=== PATIENT | female | born 1960 | race Caucasian/White ===

== ENCOUNTER 2021-04-04 08:52 | Outpatient (REF) | payer BC, SELFPAY ==
--- NOTE | ~2021-04-04 | MM_ITS ---
EXAMINATION: MM SCREENING DIGITAL BREAST TOMOSYNTHESIS, BILATERAL CLINICAL INFORMATION: Screening. Asymptomatic. The lifetime risk of breast cancer based on the Tyrer-Cuzick Model is 5.8%. COMPARISON: Mammography: March 28, 2020 and studies dating back to June 05, 2016 TECHNIQUE: Digital breast tomosynthesis is performed in both the craniocaudal and mediolateral oblique views along with computer-aided detection (CAD). Synthesized 2D images are generated from the tomosynthesis. FINDINGS: The breasts are heterogeneously dense, which may obscure small masses (ACR BI-RADS breast composition Category c). There are no significant masses, abnormal calcifications, or other abnormalities. MM/MM tomosynthesis screening BI IMPRESSION: There are no significant changes from prior study. ASSESSMENT: BI-RADS 1: Negative RECOMMENDATION: Routine annual mammography screening. This patient's information was entered into a reminder system with a target due date for their next mammogram.
== END 2021-04-04 08:53 | disposition home or self-care (01) ==
LOC: HO.MAMMO 08:52
PROVIDERS: PCP Internal Medicine; Visit Provider Internal Medicine
DX: Z12.31 Encounter for screening mammogram for malignant neoplasm of breast (principal)
CPT/HCPCS: 77063; 77067

== ENCOUNTER 2021-04-26 09:27 | Outpatient (REF) | payer BC, SELFPAY ==
[2021-04-29 13:41] LABS: HPV mRNA E6/E7 rflx Not Detected (Not Detected)
== END 2021-04-26 09:28 | disposition home or self-care (01) ==
LOC: HO.LAB 09:27
PROVIDERS: PCP Internal Medicine; Visit Provider Advanced Practice Midwife
DX: Z01.419 Encounter for gynecological examination (general) (routine) without abnormal findings (principal); Z11.51 Encounter for screening for human papillomavirus (HPV); N95.1 Menopausal and female climacteric states
CPT/HCPCS: 87624; 88142

== ENCOUNTER 2021-10-12 07:21 | Observation (INO) | payer BC, SELFPAY ==
[2021-10-12] VITALS (8 sets, daily range): BP systolic 151–198; BP diastolic 74–87; PULSE 63–78; RESP 13–18; TEMP 36.9–37.4; O2SAT 97–99; BMI 26.4
--- NOTE | ~2021-10-12 | MR_ITS ---
EXAMINATION: MR BRAIN WITHOUT CONTRAST CLINICAL INFORMATION: Left leg weakness. Severe dizziness. COMPARISON: Head CTA 10/12/2021. TECHNIQUE: Multiplanar, multisequence imaging of the brain was performed without intravenous contrast. FINDINGS: There is no acute infarction, mass, hemorrhage, or extra-axial collection. The ventricles, sulci, and basilar cisterns are normal in size and configuration. A few minimal nonspecific foci of T2/FLAIR hyperintensity are seen within the cerebral white matter. The flow voids of the major intracranial arteries appear intact. The bones and extracranial soft tissues are unremarkable. MR/MR head/brain wo con IMPRESSION: No acute infarct, mass lesion, intracranial hemorrhage, or evidence of hydrocephalus.
--- NOTE | ~2021-10-12 | CT_ITS ---
EXAMINATION: CT ANGIOGRAM NECK WITH CONTRAST CT ANGIOGRAM BRAIN WITH CONTRAST CLINICAL INFORMATION: Left leg weakness. COMPARISON: None. TECHNIQUE: Test bolus sequences followed by intravenous administration 100 mL of Omnipaque 350. Helical imaging was performed in the axial plane from the thoracic inlet to the skull vertex. Delayed postcontrast imaging of the head was also performed. The data was processed at the public health technologist workstation for generation of MIP sequences. Angled MIPs and volume rendered reformatted images were also generated at an offline 3D workstation. Stenoses are assessed in accordance with NASCET criteria unless otherwise indicated. This CT examination was performed using dose optimization techniques as appropriate, variously including the following: *Automated exposure control *Adjustment of mA and/or kV according to patient size (this includes techniques or standardized protocols for targeted exams where dose is matched to indication/reason for exam; i.e. extremities or head) *Use of iterative reconstruction technique DLP: 2158 mGy-cm FINDINGS: Head CT: There is no intracranial hemorrhage, large acute infarction, or mass lesion. The ventricles are normal in size and configuration without evidence of hydrocephalus. No abnormal enhancement is seen. The dural venous sinuses are normally opacified. The visualized paranasal sinuses and mastoid air cells are clear. Neck CTA: The aortic arch and great vessel origins are patent. A small ductus bump is noted (variant anatomy). The common and internal carotid arteries are patent. No bifurcation stenosis is seen. The bilateral vertebral arteries are codominant and patent. Head CTA: No proximal vessel occlusion is seen. The anterior and posterior circulations are patent. There is no stenosis or aneurysm. Non-vascular findings: There is no consolidation within the upper lungs. Multilevel degenerative changes are seen within the spine. CT/CT angio head neck IMPRESSION: No significant stenosis or occlusion within the major head or neck arteries. No acute intracranial abnormality.
--- NOTE | 2021-10-12 08:00 | ECG_ITS ---
Test Reason : Left-sided weakness Blood Pressure : / mmHG Vent. Rate : 068 BPM Atrial Rate : 068 BPM P-R Int : 124 ms QRS Dur : 078 ms QT Int : 412 ms P-R-T Axes : 006 060 038 degrees QTc Int : 438 ms Normal sinus rhythm Nonspecific ST abnormality Abnormal ECG No previous ECGs available Referred By: Generic ED Physician Electronically Signed By:JESSICA MCCLURE
--- NOTE | 2021-10-12 08:03 | ED.WEAKNESS ---
HPI - Weakness General Chief complaint: Weakness Stated complaint: L side tingling Time Seen by Provider: 10/12/21 07:39 Source: patient Mode of arrival: ambulatory Limitations: no limitations History of Present Illness HPI Narrative: 61 y/o otherwise healthy female presents to the ER from home for evaluation of dizziness for the last 24 hours and new onset of left leg weakness that she noticed when she woke up at 4am today. Yesterday morning patient reports she woke up and had severe positional dizziness to the point where she couldn't walk and needed to crawl to the bathroom. She was nauseated at the time but did not vomit. She reports it was like the room was spinning. It slowly improved by bedtime. Before she went to bed she noticed her left eye felt funny with some pressure and with foreign body sensation. No vision changes. When she woke up at 4am to go to the bathroom she states her left leg was noticeably weaker than the right and when she walked it felt like her left foot was walking on sponges. She had recurrent dizziness as well. No left arm weakness, speech difficulties. No history of stroke, no medical comorbidities and she is a nonsmoker. Her mother has had several strokes. MD Complaint: focal weakness Onset (ago): day(s) (1) Duration: constant Location: LLE Severity: moderate Quality: tingling Relieving factors: rest Exacerbating factors: movement Associated symptoms: nausea/vomiting Related Data Home Medications Medication Instructions Recorded Confirmed ascorbic acid (vitamin C) 500 mg 500 mg PO DAILY 10/12/21 10/12/21 tablet cholecalciferol (vitamin D3) 125 125 mcg PO DAILY 10/12/21 10/12/21 mcg (5,000 unit) tablet Allergies Allergy/AdvReac Type Severity Reaction Status Date / Time shellfish Allergy Unknown Unverified 05/15/16 00:00 shellfish derived Allergy Unknown ANGIOEDEMA Unverified 03/31/20 15:31 [SHELLFISH DERIVED] Sulfa (Sulfonamide Allergy Unknown Verified 05/15/16 00:00 Antibiotics) Review of Systems Review of Systems: Constitutional: No Fever, No Chills ENT/Mouth: No sore throat, No Rhinorrhea, No Swallowing Difficulty Eyes: No Eye Pain, No Swelling, No Redness, +FB sensation Cardiovascular: No Chest Pain, No SOB, No Orthopnea, No Edema Respiratory: No Cough, No Sputum, No Wheezing, No dyspnea Gastrointestinal: + Nausea, No Vomiting, No Diarrhea, No abdominal Pain, No Hematochezia, No Melena Genitourinary: No Dysuria, No Urinary Frequency, No Hematuria Musculoskeletal: No joint pain, No Myalgias Skin: No Skin Lesions, No rash Neuro: + Weakness, No Numbness, + Dizziness, No Headache Psych: No Anxiety/Panic, No Depression Heme/Lymph: No Bruising, No Lymphadenopathy Endocrine: No Polyuria, No Polydipsia [facility] Past Medical History Medical History Ganglion cyst Family History Family History Maternal Aunt History of breast cancer Social History Social History Alcohol intake: current Alcohol intake frequency: 0-2 drinks per day Alcohol type: beer Patient Tobacco Use Status: Never used Tobacco Advance Directives: No Sexual orientation: Straight/Heterosexual Gender identity: Female Physical Exam Vital Signs: Vital Signs: Last Vital Signs Temp 98.5 F 10/12/21 07:48 Pulse 66 10/12/21 09:43 Resp 14 10/12/21 09:43 BP 166/84 H 10/12/21 09:43 Pulse Ox 98 10/12/21 09:43 BMI result Body Mass Index 26.4 Appearance: Alert. Oriented X3. No acute distress. Eyes: Pupils equal, round and reactive to light. Slight ptosis of the left eye. EOMI, no nystagmus ENT: Pharynx normal. Normal TM's bilaterally, partially obscured by cerumen in the right Neck: Normal inspection. Neck supple. CVS: Normal heart rate and rhythm. Pulses normal. Respiratory: No respiratory distress. Breath sounds normal. Abdomen: Soft and nontender. +BS x4 Skin: Skin warm and dry. Normal skin color. Normal skin turgor. No rashes. Extremities: No lower extremity edema. Normal inspection x4 Neuro: Oriented X 3. Normal speech & cognition. Equal and symmetrical strength of the bilateral UE. No pronator drift. Normal finger to nose, able to perform heel to robles bilaterally but slower with the left leg. Left leg 3/5 strength, right leg 5/5. Decreased sensation of the left leg and foot. Gait not tested due to dizziness. NIH Stroke Scale Internal: Initial- Upon Arrival Level of Consciousness: Alert Level of Consciousness Questions: Answers both questions correctly Level of Consciousness Commands: Performs both tasks correctly Best Gaze: Normal Visual: No visual loss Facial Palsy: Minor paralyis (left eye ptosis) Motor Arm (Right): No drift Motor Arm (Left): No drift Motor Leg (Right): No drift Motor Leg (Left): Some effort against gravity Limb Ataxia: Absent Sensory: Mild to moderate sensory loss Best Language: No aphasia Dysarthia: Normal Extinction and Inattention: No abnormality Score: 4 Course Course Course Narrative: 61-year-old female with no medical comorbidities presenting to the ER with severe dizziness times 24 hours as well as 4 hours of left lower extremity weakness and tingling. Concern for stroke. Unfortunately she is out of the tPA window. Case d/w Dr. Esquivel who is in agreement. Stroke workup initiated including CT head, CTA head and neck, lab workup, EKG. Will monitor on telemetry. Will monitor closely. Allowing permissive HTN with concern for CVA. Anticipate admission. Reevaluation(s) Reevaluation #1: CTA head/neck negative for LVO or acute intracranial abnormality. Lab workup unremarkable. EKG sinus rhythm. Dizziness persists but better when resting with eyes closed. MRI brain ordered for further evaluation. Will admit for further monitoring and workup. Patient and updated on plan of care. MDM - Weakness Medical Records Attestation: I reviewed the patient's medical records. Lab Data Attestation: I reviewed the patient's lab results. Result diagrams: 10/12/21 08:03 10/12/21 08:03 Labs: Lab Results 10/12/21 10/12/21 10/12/21 Range/Units 08:03 08:03 08:03 WBC 3.8 L (4.8-10.8) X10*3/uL RBC 3.89 L (4.20-5.50) X10*6/uL Hgb 12.1 (12.0-16.0) g/dl Hct 36.5 L (37.0-47.0) % MCV 93.8 (80.0-98.0) fL MCH 31.1 (27.0-33.0) pg MCHC 33.2 (31.0-35.0) g/dl RDW 13.0 (11.0-16.0) % Plt Count 256 (160-400) X10*3/uL MPV 10.6 (9.4-12.3) fL Immature Gran % (Auto) 0.0 (0.0-0.4) % Neut % (Auto) 57.0 (45-73) % Lymph % (Auto) 30.9 (20-40) % [place] % (Auto) 9.5 (2-11) % Eos % (Auto) 1.8 (0-4) % Baso % (Auto) 0.8 (0-2) % Lymph # (Auto) 1.2 (1.2-4.9) X10*3/uL [place] # (Auto) 0.4 (0.1-1.2) X10*3/uL Eos # (Auto) 0.1 (0.0-0.4) X10*3/uL Baso # (Auto) 0.0 (0.0-0.2) X10*3/uL Abs Immat Gran (auto) 0.00 (0.00-0.03) X10*3/uL Absolute Neuts (auto) 2.2 (2.0-8.3) x10*3/uL Absolute Nucleated RBC 0.000 (0.0-0.012) X10*3/uL Nucleated RBC % (auto) 0.0 (0.0-0.2) /100WBC PT (9.9-13.0) SEC INR (0.9-1.1) Sodium 143 (135-145) mmol/L Potassium 4.1 (3.3-5.1) mmol/L Chloride 107 (96-108) mmol/L Carbon Dioxide 29 (22-29) mmol/L Anion Gap 11 L (12-20) BUN 11 (9-16) mg/dL Creatinine 0.80 (0.5-1.4) mg/dL Estim Creat Clear Calc 70.8 Estimated GFR > 60 Random Glucose 107 (60-115) mg/dL Calcium 9.0 (8.4-10.2) mg/dL Troponin I High Sens (<3.5-17.0) ng/L COVID-19 (CHRISTEN) Negative (Negative) COVID-19 Clin Com See Note 10/12/21 10/12/21 Range/Units 08:03 08:06 WBC (4.8-10.8) X10*3/uL RBC (4.20-5.50) X10*6/uL Hgb (12.0-16.0) g/dl Hct (37.0-47.0) % MCV (80.0-98.0) fL MCH (27.0-33.0) pg MCHC (31.0-35.0) g/dl RDW (11.0-16.0) % Plt Count (160-400) X10*3/uL MPV (9.4-12.3) fL Immature Gran % (Auto) (0.0-0.4) % Neut % (Auto) (45-73) % Lymph % (Auto) (20-40) % [place] % (Auto) (2-11) % Eos % (Auto) (0-4) % Baso % (Auto) (0-2) % Lymph # (Auto) (1.2-4.9) X10*3/uL [place] # (Auto) (0.1-1.2) X10*3/uL Eos # (Auto) (0.0-0.4) X10*3/uL Baso # (Auto) (0.0-0.2) X10*3/uL Abs Immat Gran (auto) (0.00-0.03) X10*3/uL Absolute Neuts (auto) (2.0-8.3) x10*3/uL Absolute Nucleated RBC (0.0-0.012) X10*3/uL Nucleated RBC % (auto) (0.0-0.2) /100WBC PT 12.3 (9.9-13.0) SEC INR 1.1 (0.9-1.1) Sodium (135-145) mmol/L Potassium (3.3-5.1) mmol/L Chloride (96-108) mmol/L Carbon Dioxide (22-29) mmol/L Anion Gap (12-20) BUN (9-16) mg/dL Creatinine (0.5-1.4) mg/dL Estim Creat Clear Calc Estimated GFR Random Glucose (60-115) mg/dL Calcium (8.4-10.2) mg/dL Troponin I High Sens < 3.5 (<3.5-17.0) ng/L COVID-19 (CHRISTEN) (Negative) COVID-19 Clin Com ECG Data Attestation: I personally reviewed and interpreted this ECG as follows: ECG interpretation date: 10/12/21 ECG interpretation time: 09:03 Interpretation: Normal sinus rhythm, heart rate 68 beats per minute, normal DC interval, normal QRS T-wave inversion in V1 only. No ST segment elevations or depressions. Critical Care Time Critical Care Time Critical Care Time: Yes Total Critical Care Time: 37 Attestation: I have personally provided critical care time exclusive of time spent on separately billable procedures. Time includes review of lab data, radiology results, discussion with consultants, and monitoring for potential decompensation. Intervention performed as documented. Discharge Plan Discharge Clinical Impression: Left leg weakness, Dizziness, Hypertension Patient Disposition: Admitted As Inpatient
[2021-10-12 08:10] LABS: MANUAL DIFF FLAG NO
[2021-10-12 08:14] LABS: Basophils Percent Auto 0.8 % (0-2); Eosinophils Absolute Auto 0.1 X10*3/uL (0.0-0.4); Eosinophils Percent Auto 1.8 % (0-4); Hematocrit 36.5 % (37.0-47.0); Hemoglobin 12.1 g/dl (12.0-16.0); Lymphocytes Absolute Auto 1.2 X10*3/uL (1.2-4.9); Lymphocytes Percent Auto 30.9 % (20-40); Mean Corpuscular HGB Conc 33.2 g/dl (31.0-35.0); Mean Corpuscular Hemoglobin 31.1 pg (27.0-33.0); Mean Corpuscular Volume 93.8 fL (80.0-98.0); Mean Platelet Volume 10.6 fL (9.4-12.3); Monocytes Absolute Auto 0.4 X10*3/uL (0.1-1.2); Monocytes Percent Auto 9.5 % (2-11); Neutrophils Absolute Auto 2.2 x10*3/uL (2.0-8.3); Platelet Count 256 X10*3/uL (160-400); Red Blood Count 3.89 X10*6/uL (4.20-5.50); White Blood Count 3.8 X10*3/uL (4.8-10.8)
[2021-10-12 08:19] LABS: INTERNATIONAL NORM RATIO 1.1 (0.9-1.1); Prothrombin Time 12.3 SEC (9.9-13.0)
[2021-10-12 08:25] LABS: Anion Gap 11 (12-20); Blood Urea Nitrogen 11 mg/dL (9-16); Carbon Dioxide 29 mmol/L (22-29); Chloride 107 mmol/L (96-108); Creatinine Clr Calc Pharmacy 70.8; Estimated Glomerular Filt Rate > 60; Glucose Random 107 mg/dL (60-115); Potassium 4.1 mmol/L (3.3-5.1); Sodium 143 mmol/L (135-145)
[2021-10-12 08:27] LABS: COVID-19 Test Negative (Negative); IDNOW Serial# 16C4AD1C
[2021-10-12 08:33] LABS: Troponin-I High Sensitivity < 3.5 ng/L (<3.5-17.0)
--- NOTE | 2021-10-12 09:46 | PC.NURSE ---
NO CHANGES FROM INITAL ASSESSMENT. LEFT LE IS SLIGHTLY WEAKER. SPEECH IS CLEAR AND APPROPRIATE, AWAITING CT RESULTS.
--- NOTE | 2021-10-12 09:47 | PHA.MEDREC ---
Pharmacy Consult ? Medication Reconciliation Pharmacy has completed the medication reconciliation. No RX meds, 2 otc meds
[2021-10-12] MEDS: iohexoL 350 MG/ML 100 ML INFUS..BTL IV (10:00)
--- NOTE | 2021-10-12 11:10 | PC.NURSE ---
SLOW SUPERVISED GAIT TO BATHROOM. NO LOB BUT REPORTS FEELING UNSTEADY MRI SCREENING COMPLETED
--- NOTE | 2021-10-12 12:15 | PC.NURSE ---
OFFERS NO COMPLAINTS UPON RETURNONG FROM MRI. NO SX CHANGES
--- NOTE | 2021-10-12 13:01 | PC.NURSE ---
DR GRAHAM HERE FOR ADMISSION
--- NOTE | 2021-10-12 15:26 | PM.IMHP ---
History of Present Illness Date of Service: 10/12/21 Chief Complaint: left sided tingling, numbness 61 y/o female with no HTN, HLD or diabetes who presents to the ED with dizziness and left sided weakness. Yesterday she had episode of dizziness better stated as vertigo type to the point where she couldn't walk and had to crawl on the floor, this was associated with nausea. This morning around 4 she noted left weakness, tingling in the foot and some heaviness while trying to go the bathroom. She aslo describes an episode of funny feeling in the left eye with with foreign body sensation, work up here has been negative including unremarkable CT and MRI of head and that time I saw her, she relates tat her symptoms has signficantly improved and had no trouble walking for me. [facility] Medical History Ganglion cyst Family History (Updated 10/12/21 @ 15:35 by Fletcher Davis MD) Maternal Aunt History of breast cancer Mother Stroke Diabetes HTN (hypertension) Social History Alcohol intake: current Alcohol intake frequency: 0-2 drinks per day Alcohol type: beer Patient Tobacco Use Status: Never used Tobacco Currently Displaying Signs/Symptoms of Drug Intoxication Withdrawal: No Advance Directives: No Sexual orientation: Straight/Heterosexual Gender identity: Female Meds Allergies Allergy/AdvReac Type Severity Reaction Status Date / Time shellfish Allergy Unknown Unverified 05/15/16 00:00 shellfish derived Allergy Unknown ANGIOEDEMA Unverified 03/31/20 15:31 [SHELLFISH DERIVED] Sulfa (Sulfonamide Allergy Unknown Verified 05/15/16 00:00 Antibiotics) Active Medications: Current Medications Pharmacy Consult (Consult Rx Perform Med Rec) 1 each MISCELLANE ONCE PRN PRN Reason: Consult order Sodium Chloride (0.9 % Sodium Chloride Flush 3 Ml Syringe) 3 ml IVFLUSH QSHIFT [facility] Home Medications Medication Instructions Recorded Confirmed Last Taken Type ascorbic acid (vitamin C) 500 mg 500 mg PO DAILY 10/12/21 10/12/21 Unknown History tablet cholecalciferol (vitamin D3) 125 125 mcg PO DAILY 10/12/21 10/12/21 Unknown History mcg (5,000 unit) tablet Physical Exam Vital Signs and Narrative: Vital Signs: Last Vital Signs Temp 98.5 F 10/12/21 15:10 Pulse 74 10/12/21 15:10 Resp 13 10/12/21 15:10 BP 151/78 H 10/12/21 15:10 Pulse Ox 97 10/12/21 15:10 BMI result Body Mass Index 26.4 Results Labs CBC and Chem 7: 10/12/21 08:03 10/12/21 08:03 Labs: Laboratory Results - last 24 hr 10/12/21 10/12/21 10/12/21 08:03 08:03 08:03 MCV 93.8 MCH 31.1 MCHC 33.2 RDW 13.0 Plt Count 256 MPV 10.6 Immature Gran % (Auto) 0.0 Neut % (Auto) 57.0 Lymph % (Auto) 30.9 [place] % (Auto) 9.5 Eos % (Auto) 1.8 Baso % (Auto) 0.8 Lymph # (Auto) 1.2 [place] # (Auto) 0.4 Eos # (Auto) 0.1 Baso # (Auto) 0.0 Abs Immat Gran (auto) 0.00 Absolute Neuts (auto) 2.2 Absolute Nucleated RBC 0.000 Nucleated RBC % (auto) 0.0 PT INR Anion Gap 11 L Estim Creat Clear Calc 70.8 Estimated GFR > 60 Random Glucose 107 Calcium 9.0 Troponin I High Sens COVID-19 (CHRISTEN) Negative COVID-19 Clin Com See Note 10/12/21 10/12/21 08:03 08:06 MCV MCH MCHC RDW Plt Count MPV Immature Gran % (Auto) Neut % (Auto) Lymph % (Auto) [place] % (Auto) Eos % (Auto) Baso % (Auto) Lymph # (Auto) [place] # (Auto) Eos # (Auto) Baso # (Auto) Abs Immat Gran (auto) Absolute Neuts (auto) Absolute Nucleated RBC Nucleated RBC % (auto) PT 12.3 INR 1.1 Anion Gap Estim Creat Clear Calc Estimated GFR Random Glucose Calcium Troponin I High Sens < 3.5 COVID-19 (CHRISTEN) COVID-19 Clin Com Imaging Radiologist's Impressions: Impressions Head/Neck CTA 10/12/21 09:58 IMPRESSION: No significant stenosis or occlusion within the major head or neck arteries. No acute intracranial abnormality. Brain MRI 10/12/21 12:00 IMPRESSION: No acute infarct, mass lesion, intracranial hemorrhage, or evidence of hydrocephalus. Assessment and Plan (1) Left leg weakness: Status: Acute (2) Dizziness: Status: Acute (3) Hypertension: Status: Acute Plan 61/F with with dizziness, left sided weakness that appear to be transient with unremarkable brain and head and neck CT, as well as brain MRI, noted to have high BP. Suspect possible TIA and undiagnosed HTN. plan: Monitor on monitor, check lipids, Neuro checks, neuro consult, ASA, start norvasc for high BP (previously undiagnosed HTN).. No indication for PT or OT at this time. Quality Stroke Does the patient have a stroke diagnosis?: No VTE Prior VTE?: No VTE Risk Level:: Medical - low VTE Device Contraindication: Treatment Not Indicated VTE Drug Contraindication: Treatment Not Indicated
[2021-10-12] MEDS: 0.9 % Sodium Chloride Flush 3 ML SYRINGE IVFLUSH ×2 (15:38→23:20)
--- NOTE | 2021-10-12 16:26 | PM.NEUROCN ---
History of Present Illness Data of Consult Service Date: 10/12/21 Primary Care Provider: Mike Castorena MD HPI Reason for consult: Numbness 61 years old woman who said that she did not have hypertension or at least she was not taking any medicine for it came to hospital with left-sided numbness. She said that she woke up this morning and noted something wrong with her left side. It was numb and tingly and weak. It was more so in her leg but also the whole left side. There was no headache or pain when I saw her in emergency room she was feeling somewhat better. There was no associated dizziness cardiac symptom or headache. Review of Systems Review of Systems: No recent cold or flu-like illness or trauma PMFSH Past Medical History Medical History Ganglion cyst Family History Family History (Updated 10/12/21 @ 15:35 by Fletcher Davis MD) Maternal Aunt History of breast cancer Mother Stroke Diabetes HTN (hypertension) Social History Social History Alcohol intake: current Alcohol intake frequency: 0-2 drinks per day Alcohol type: beer Patient Tobacco Use Status: Never used Tobacco Advance Directives: No Sexual orientation: Straight/Heterosexual Gender identity: Female Meds Allergies Allergy/AdvReac Type Severity Reaction Status Date / Time shellfish Allergy Unknown Unverified 05/15/16 00:00 shellfish derived Allergy Unknown ANGIOEDEMA Unverified 03/31/20 15:31 [SHELLFISH DERIVED] Sulfa (Sulfonamide Allergy Unknown Verified 05/15/16 00:00 Antibiotics) Active Medications: Current Medications Amlodipine Besylate (Amlodipine Besylate 2.5 Mg Tablet) 2.5 mg PO DAILY [facility]; Protocol Ascorbic Acid (Ascorbic Acid 500 Mg Tablet) 500 mg PO DAILY [facility] Aspirin (Aspirin Enteric Coated 81 Mg Tablet.) 81 mg PO DAILY [facility] Pharmacy Consult (Consult Rx Perform Med Rec) 1 each MISCELLANE ONCE PRN PRN Reason: Consult order Sodium Chloride (0.9 % Sodium Chloride Flush 3 Ml Syringe) 3 ml IVFLUSH QSHIFT [facility] Last Admin: 10/12/21 15:38 Dose: 3 ml Documented by: Vitamin D (Cholecalciferol (Vitamin D3) 25 Mcg Tablet) 125 mcg PO DAILY [facility] Home Medications Medication Instructions Recorded Confirmed Last Taken Type ascorbic acid (vitamin C) 500 mg 500 mg PO DAILY 10/12/21 10/12/21 Unknown History tablet cholecalciferol (vitamin D3) 125 125 mcg PO DAILY 10/12/21 10/12/21 Unknown History mcg (5,000 unit) tablet Physical Exam Vital Signs: Vital Signs: Last Vital Signs Temp 98.5 F 10/12/21 15:10 Pulse 74 10/12/21 15:10 Resp 13 10/12/21 15:10 BP 151/78 H 10/12/21 15:10 Pulse Ox 97 10/12/21 15:10 BMI result Body Mass Index 26.4 Neuro: Other: Alert and awake with normal spontaneity of speech fluency comprehension and affect. Face was symmetrical. There was no pronator drift. Deep tendon reflexes were trace with flexor plantars. There was no sensory or visual extinction. Results Labs CBC & Chem 7: 10/12/21 08:03 10/12/21 08:03 Labs: Short CBC 10/12/21 Range/Units 08:03 WBC 3.8 L (4.8-10.8) X10*3/uL Hgb 12.1 (12.0-16.0) g/dl Hct 36.5 L (37.0-47.0) % Plt Count 256 (160-400) X10*3/uL BMP 10/12/21 08:03 Sodium 143 Potassium 4.1 Chloride 107 Carbon Dioxide 29 BUN 11 Creatinine 0.80 Calcium 9.0 Noncontrast MRI of brain did not reveal any significant acute or chronic abnormality. CTA of brain and neck did not reveal any significant lesion. Assessment and Plan (1) Left leg weakness: Status: Acute 61 years old woman with uncontrolled hypertension presents with left-sided numbness and weakness. She said that it was leg but also the whole left side. Her examination did not reveal any significant finding. Imaging also did not reveal any significant finding and specifically there was no sign of acute stroke. At this time my recommendation is reassurance and education, baby aspirin daily, blood pressure control, and checking for other vascular risk factors including lipids. She can follow-up with her primary care physician. Procedures Date of Service Date of Service: 10/12/21
[2021-10-12] MEDS: Aspirin Enteric Coated 81 MG TABLET.DR PO (17:08)
[2021-10-12] MEDS: amLODIPine Besylate 2.5 MG TABLET PO (17:08)
--- NOTE | 2021-10-12 19:07 | PC.NURSE ---
Took report from RN to assume care of PT, Pt resting watching tv.
--- NOTE | 2021-10-12 19:48 | PC.NURSE ---
Pt A+Ox3, Pt assisted to restroom, Pt needs met, Pt returned to bed, Pt now resting and watching tv, call light in reach.
[2021-10-13] VITALS: BP 149/76; PULSE 68; RESP 17; TEMP 36.4; O2SAT 95
[2021-10-13 04:00] VITALS: BP 131/75; PULSE 60; RESP 18; TEMP 36.7; O2SAT 99
[2021-10-13 06:22] LABS: Cholesterol 218 mg/dL; HDL Cholesterol 68 mg/dL; LDL Cholesterol Calculated 139 mg/dl; Triglycerides 59 mg/dL
[2021-10-13 07:20] VITALS: BP 163/88; PULSE 69; RESP 18; TEMP 36; O2SAT 100
[2021-10-13] MEDS: amLODIPine Besylate 2.5 MG TABLET PO ×2 (07:51→09:59)
[2021-10-13] MEDS: Cholecalciferol (Vitamin D3) 25 MCG TABLET 125 MCG PO (07:52)
[2021-10-13] MEDS: Aspirin Enteric Coated 81 MG TABLET.DR PO (07:52)
[2021-10-13] MEDS: Ascorbic Acid 500 MG TABLET PO (07:53)
[2021-10-13] MEDS: 0.9 % Sodium Chloride Flush 3 ML SYRINGE IVFLUSH ×2 (07:54→07:58)
[2021-10-13 09:43] LABS: Alanine Aminotransferase 13 U/L (0-31); Albumin Level 3.9 g/dL (3.5-5.0); Alkaline Phosphatase 74 U/L (39-117); Aspartate Amino Transferase 11 U/L (5-31); Bilirubin Direct 0.2 mg/dL (0.0-0.5); Bilirubin Total 0.3 mg/dL (0.0-1.0); Total Protein 6.7 g/dL (6.5-8.0)
--- NOTE | 2021-10-13 10:14 | MHC.CM.PN ---
PATIENT IS FULLY INDEPENDENT NO DME OR VNA SERVICES SHE HAS BEEN VACCINATED X 2 AGAINST COVID-19 WITH THE PFIZER SERIES. 09/21/20 AND 10/11/20 INFORMATION ADDED INTO EXPANSE SHE ASSIGNS HER SPOUSE AND DAUGHTER HCP AGENTS AND A COPY HAS BEEN UPLOADED INTO [employer] AND PLACED IN CHART. SHE IS EXPECTING TO RETURN HOME TODAY SPOUSE IS IN ROOM TO TRANSPORT NO SERVICES NEEDED. M.O.O.N. 10/13 IN CHART
[2021-10-13 11:34] VITALS: BP 149/84; PULSE 69; RESP 18; TEMP 36.4; O2SAT 98
--- NOTE | 2021-10-13 15:17 | PM.DS ---
DS: Providers Provider Date of Service: 10/13/21 Date of admission: 10/12/21 14:21 Primary care physician: Mike Castorena MD Consults: 10/12/21 12:59 Consult to Neurology Routine Consulting Provider: [facility] Reason for consultation: ? tia Has provider been notified: No DS: Diagnosis Discharge Diagnosis (1) Left leg weakness: Status: Resolved (2) Dizziness: Status: Resolved (3) Hypertension: Status: Resolved DS: Summary Hospital Course Hospital Course: left sided tingling, numbness 61 y/o female with no HTN, HLD or diabetes? who presents? to the ED with dizziness and left sided weakness.? Yesterday she had episode of dizziness better stated as vertigo type to the point where she couldn't walk and had to crawl on the floor, this was associated with nausea. This morning around 4 she noted left weakness, tingling? in the foot and some heaviness while trying to go the bathroom. She aslo describes an episode of? funny feeling in the left eye with with foreign body sensation, work up here has been negative including unremarkable CT and MRI of head and that time I saw her, she relates tat her symptoms has signficantly improved and had no trouble walking for me. ? ? Hospital course: Patient was observed overnight with no neuro changes, seen by Neurologist and recommended Statin, ASA, and BP controlled, was started on Norvasc for High BP, ASA and Lipitor added and reassured Time Spent with Patient Time attestation: Total time spent providing and/or coordinating discharge services: Discharge coordination time: Greater than 30 minutes Quality: Safe Use of Opioids Does Pt have an Active Cancer Diagnosis on the Problem List?: No Quality: Stroke Does the patient have a stroke diagnosis?: No Physical Exam Vital Signs: Vital Signs: Last Vital Signs Temp 97.5 F 10/13/21 11:34 Pulse 69 10/13/21 11:34 Resp 18 10/13/21 11:34 BP 149/84 H 10/13/21 11:34 Pulse Ox 98 10/13/21 11:34 BMI result Body Mass Index 26.4 General: AO X 3, no acute distress Resp: CTA bilateral CVS: S1,S2,RRR GI: +BS, NT, no distention Skin: No rash Neuro: motor grossly intact Psych: appropriate affect Discharge Plan Discharge Anticipated Discharge Date/Time: 10/13/21 09:19 Patient Disposition: Home, Self-Care Discharge Diagnosis: Transient weakness of the left side Referrals: Mike Castorena MD [Primary Care Provider] - 1 Week Discharge Medications: New amlodipine 5 mg Tablet 5 mg PO DAILY Qty: 30 0RF Protocol: Hold for SBP< HOLD for SBP < : 90 atorvastatin 40 mg Tablet 40 mg PO BEDTIME Qty: 30 0RF aspirin 81 mg Tablet,Delayed Release (Dr/Ec) 81 mg PO DAILY Qty: 90 0RF Rx Instructions: Offer OTC baby aspirin one daily first Continued ascorbic acid (vitamin C) 500 mg Tablet 500 mg PO DAILY 0RF cholecalciferol (vitamin D3) 125 mcg (5,000 unit) Tablet 125 mcg PO DAILY 0RF Discharge Orders: Discharge Order (Routine); Ordered 10/13/21 Ordered By: Fletcher Davis Diet: advance to usual diet Activity on Discharge: As tolerated Stand Alone Forms: Patient Portal Discharge page Care Plan Goals: stroke prevention, and controll of blood pressure Health Concerns: Elevated blood pressure, numbness and weakness of left side Plan of Treatment: Take baby aspirin daily Take Lipitor for high cholesterol take Norvasc for high blood pressure, follow up with your Doctor for medication adjustment Assessment: As above Discharge Date/Time: 10/13/21 14:05
== END 2021-10-13 14:05 | disposition home or self-care (01) ==
LOC: HO.ED 12:47 → HO.EDOVER 14:28 → HO.S3 19:12
PROVIDERS: Physician Assistant; Admitting Provider Internal Medicine; Emergency Provider Emergency Medicine; PCP Internal Medicine; Visit Provider Internal Medicine
DX: R29.898 Other symptoms and signs involving the musculoskeletal system (principal); R42 Dizziness and giddiness; I10 Essential (primary) hypertension; M67.40 Ganglion, unspecified site; R94.31 Abnormal electrocardiogram [ECG] [EKG]; Z20.822 Contact with and (suspected) exposure to COVID-19; Z88.2 Allergy status to sulfonamides; Z91.013 Allergy to seafood; Z79.899 Other long term (current) drug therapy
CPT/HCPCS: 36415; 70496; 70498; 70551; 80048; 80061; 80076; 84484; 85025; 85610; 87635; 93005; 99218; 99285; 99291; Q9967

== ENCOUNTER 2022-04-09 11:25 | Outpatient (REF) | payer BC, SELFPAY ==
--- NOTE | ~2022-04-09 | MM_ITS ---
EXAMINATION: MM SCREENING DIGITAL BREAST TOMOSYNTHESIS, BILATERAL CLINICAL INFORMATION: Screening. Asymptomatic. The lifetime risk of breast cancer based on the Tyrer-Cuzick Model is 6%. COMPARISON: Mammography: 04/04/2021, 03/28/2020, 10/22/2018 TECHNIQUE: Digital breast tomosynthesis is performed in both the craniocaudal and mediolateral oblique views along with computer-aided detection (CAD). Synthesized 2D images are generated from the tomosynthesis. FINDINGS: There are scattered areas of fibroglandular density (ACR BI-RADS breast composition Category b). Parenchymal pattern is similar to prior studies and there is no developing density or interval mass or architectural abnormality. No abnormal calcifications. The skin contours are smooth. Axillary nodes are stable from prior exam 2020. MM/MM tomosynthesis screening BI IMPRESSION: No significant changes from prior study. ASSESSMENT: BI-RADS 2: Benign RECOMMENDATION: Routine annual mammography screening. This patient's information was entered into a reminder system with a target due date for their next mammogram.
== END 2022-04-09 11:26 | disposition home or self-care (01) ==
LOC: HO.MAMMO 11:25
PROVIDERS: PCP Internal Medicine; Visit Provider Internal Medicine
DX: Z12.31 Encounter for screening mammogram for malignant neoplasm of breast (principal)
CPT/HCPCS: 77063; 77067

== ENCOUNTER → 2022-08-29 08:37 | Outpatient (BNVA) | payer BC, SELFPAY | PROVIDERS: PCP Internal Medicine; Visit Provider Advanced Practice Midwife | DX: Z13.89 Encounter for screening for other disorder (principal) ==

== ENCOUNTER 2023-04-15 10:04 | Outpatient (REF) | payer OTHER, SELFPAY | END 2023-04-15 10:05 | disposition home or self-care (01) | LOC: HO.MAMMO 10:04 | PROVIDERS: PCP Internal Medicine; Visit Provider Internal Medicine | DX: Z12.31 Encounter for screening mammogram for malignant neoplasm of breast (principal) | CPT/HCPCS: 77063; 77067 ==

== ENCOUNTER → 2023-04-15 10:15 | Outpatient (BNV) | payer OTHER, SELFPAY | PROVIDERS: PCP Internal Medicine; Visit Provider Radiology Diagnostic Radiology | DX: Z12.31 Encounter for screening mammogram for malignant neoplasm of breast (principal) | CPT/HCPCS: 77063; 77067 ==

== ENCOUNTER 2023-09-04 08:03 | Outpatient (AMB) | payer OTHER, SELFPAY ==
--- NOTE | 2023-09-04 08:31 | A.OFFVIS_ITS ---
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 She is doing well with no concerns. Attempting to eat a healthy diet with calcium and vitamin D and stays active with exercise and walks. Currently sexually active. Denies any irritation, reports some dryness, occasionally uses olive oil. STI testing offered; she declined. Last pap smear; 2020. Last mammogram; 2022. Colonoscopy is booked 09/16/23. Denies any family history of ovarian or colon cancer. FH breast cancer. [facility] Medical History High cholesterol Mild acid reflux Ganglion cyst Surgical History H/O hand surgery Family History Maternal Aunt History of breast cancer Mother Stroke Diabetes HTN (hypertension) Social History Alcohol intake: current Alcohol intake frequency: 0-2 drinks per day Alcohol type: beer Patient Tobacco Use Status: Never used Tobacco service: No Current occupational status: employed Sexual orientation: Straight/Heterosexual Gender identity: Female Female Reproductive History Menstrual Total pregnancies: 2 Full term: 2 Number of Living Children: 2 Date of last pap smear: 04/26/21 (neg pap and hpv) Date of Mammogram: 04/15/23 (Birad 1) Review of Systems Const All systems reviewed & are unremarkable except as noted in HPI and below Reports as per HPI Eyes Reports no additional complaints ENT Reports no additional complaints Card Reports no additional complaints Resp Reports no additional complaints GI Reports as per HPI and Reports no additional complaints Reports as per HPI Musc Reports no additional complaints Skin/Breast Reports as per HPI Neuro Reports no additional complaints Psych Reports no additional complaints Endo Reports no additional complaints Surjit/Lymph Reports no additional complaints Aller/Immun Reports no additional complaints Physical Exam Vital Signs: Last Vital Signs BP 120/84 09/04/23 08:33 BMI result Body Mass Index 28.1 Const General: cooperative, healthy appearing, no acute distress, well developed and alert Orientation/consciousness: patient oriented x3 HEENT Head: Yes normal to inspection Eyes General: appearance normal, both eyes and all related structures Neck Neck: Yes normal visual inspection Thyroid: Thyroid normal Chest Chest palpation & inspection: normal inspection of the chest and other (no puckering, dimpling, peau de orange, retraction, discharge, masses) Breast/axilla inspection: normal inspection of the breasts Breast/axilla palpation: normal palpation of the breasts Resp Effort & Inspection: normal respiratory effort GI Inspection: Yes normal to inspection Palpation (GI): Soft to palpation Rectal Exam - Female: deferred General: Yes bladder normal to palpation External Female Exam: normal external appearance and normal appearance of the urethra Speculum Exam - Vagina: normal appearance of the vagina, normal palpation, normal vaginal discharge and vagina atrophic Speculum Exam - Cervix: normal appearance of the cervix and normal palpation Bimanual exam- vagina & uterus: normal bimanual exam, normal palpation, uterine size normal, bladder normal to palpation, normal palpation and non-tender Bimanual Exam- Adnexa, other: no masses Skin General skin exam: no rashes or lesions noted Rashes: no rashes Neuro General: patient oriented x3 Cognition (Neuro): normal cognition Extrem General: Yes normal to inspection Psych Attitude: cooperative Thought process: Normal thought process present Assessment & Plan Assessment & Plan (1) Encounter for well woman exam with routine gynecological exam: Code(s): Z01.419 - Encounter for gynecological examination (general) (routine) without abnormal findings Plan Discussed: Current recommendations for pap smears per ASCCP guidelines. Breast awareness, periodic self breast exams and yearly mammogram. Maintain a healthy lifestyle, well balanced diet including Calcium 1,200 mg and Vitamin D 600 IU daily, and routine exercise. Contact the office with any postmenopausal bleeding. Patient verbalizes understanding and agrees to the plan of care. She was given opportunity to ask questions and all questions were answered to the best of my ability. 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 This note is constructed using voice recognition software. While every effort has been made to ensure accuracy, fabrication lead errors may have been included. Coding Level of Care Code Est Pt Prev Care 40-64y(21652) Diagnoses Encounter for well woman exam with routine gynecological exam Z01.419
[2023-09-04 08:33] VITALS: BP 120/84; BMI 28.1
== END 2023-09-04 09:12 | disposition home or self-care (01) ==
LOC: HO.HWS 08:03
PROVIDERS: PCP Internal Medicine; Visit Provider Advanced Practice Midwife
DX: Z01.419 Encounter for gynecological examination (general) (routine) without abnormal findings (principal)
CPT/HCPCS: 99396

== ENCOUNTER → 2023-09-04 08:03 | Outpatient (BNVA) | payer OTHER, SELFPAY | PROVIDERS: PCP Internal Medicine; Visit Provider Advanced Practice Midwife | DX: Z01.419 Encounter for gynecological examination (general) (routine) without abnormal findings (principal) | CPT/HCPCS: 99396 ==

== ENCOUNTER 2023-09-16 07:05 | Day surgery (SDC) | payer OTHER, SELFPAY ==
[2023-09-12 12:50] VITALS: BMI 27.9
--- NOTE | 2023-09-13 12:35 | P.CONAN_ITS ---
HPI - Anesthesia Eval Consult details Narrative: 63yo F for Colonoscopy [facility] Past Medical History Medical History High cholesterol Mild acid reflux Ganglion cyst Family History Family History Maternal Aunt History of breast cancer Mother Stroke Diabetes HTN (hypertension) Surgical History Surgical History (Updated 09/12/23 @ 12:50 by Katherin Feliciano RN) H/O colonoscopy H/O hand surgery Social History Social History Alcohol intake: current Alcohol intake frequency: 0-2 drinks per day Alcohol type: beer Patient Tobacco Use Status: Never used Tobacco service: No Current occupational status: employed Sexual orientation: Straight/Heterosexual Gender identity: Female Meds Allergies Allergy/AdvReac Type Severity Reaction Status Date / Time shellfish derived Allergy Unknown ANGIOEDEMA Verified 09/04/23 08:32 [SHELLFISH DERIVED] Sulfa (Sulfonamide Allergy Unknown Unknown Verified 09/04/23 08:32 Antibiotics) Home Medications Medication Instructions Recorded Confirmed Last Taken Type ascorbic acid (vitamin C) 500 mg 500 mg PO DAILY 10/12/21 10/12/21 Unknown History tablet cholecalciferol (vitamin D3) 125 125 mcg PO DAILY 10/12/21 10/12/21 Unknown History mcg (5,000 unit) tablet pantoprazole 40 mg tablet,delayed 40 mg PO DAILY 08/29/22 09/12/23 Unknown History release turmeric 100 mg-jt 150 cap PO 08/29/22 Unknown History mg-olive 50 mg-oreg 150 mg-capryl capsule amlodipine 5 mg tablet 2.5 mg PO DAILY 09/04/23 09/12/23 Unknown History rosuvastatin 10 mg tablet 10 mg PO DAILY 09/12/23 09/12/23 Unknown History Exam Height,Weight and Vital Signs: Height 5 ft 3.5 in Weight 72.575 kg Assessment and Plan Assessment Anesthesia Assessment: Chart Reviewed
--- NOTE | 2023-09-16 07:29 | P.CONAN_ITS ---
[facility] Past Medical History Medical History High cholesterol Mild acid reflux Ganglion cyst Functional capacity: independent ambulation Patient : No Family History Family History Maternal Aunt History of breast cancer Mother Stroke Diabetes HTN (hypertension) Surgical History Surgical History H/O colonoscopy H/O hand surgery History of Problems with Anesthesia: No Social History Social History Alcohol intake: current Alcohol intake frequency: 0-2 drinks per day Alcohol type: beer Patient Tobacco Use Status: Never used Tobacco Advance Directives: No Advance Directives Information Provided: Yes service: No Current occupational status: employed Sexual orientation: Straight/Heterosexual Gender identity: Female Meds Allergies Allergy/AdvReac Type Severity Reaction Status Date / Time shellfish derived Allergy Unknown ANGIOEDEMA Verified 09/04/23 08:32 [SHELLFISH DERIVED] Sulfa (Sulfonamide Allergy Unknown Unknown Verified 09/04/23 08:32 Antibiotics) Active Medications: Current Medications Lactated Ringer's (Lr) 1,000 mls @ 100 mls/hr IVCONT .Q10H ERI Sodium Biphosphate/Sodium Phosphate (Sodium Phosphate,Bleckley-Dibasic 133 Ml Enema) 133 ml [place] ONCE PRN PRN Reason: Poor Colonoscopy Prep Results Home Medications Medication Instructions Recorded Confirmed Last Taken Type ascorbic acid (vitamin C) 500 mg 500 mg PO DAILY 10/12/21 10/12/21 Unknown History tablet cholecalciferol (vitamin D3) 125 125 mcg PO DAILY 10/12/21 10/12/21 Unknown History mcg (5,000 unit) tablet pantoprazole 40 mg tablet,delayed 40 mg PO DAILY 08/29/22 09/12/23 Unknown History release turmeric 100 mg-jt 150 cap PO 08/29/22 Unknown History mg-olive 50 mg-oreg 150 mg-capryl capsule amlodipine 5 mg tablet 2.5 mg PO DAILY 09/04/23 09/12/23 Unknown History rosuvastatin 10 mg tablet 10 mg PO DAILY 09/12/23 09/12/23 Unknown History Exam Height,Weight and Vital Signs: Height 5 ft 3.5 in Weight 72.575 kg Assessment and Plan Final Anesthetic Review History of Problems with Anesthesia: No
[2023-09-16 07:41] VITALS: BP 182/88; PULSE 73; RESP 20; TEMP 36.1; O2SAT 99; BMI 27.9
[2023-09-16] MEDS: Lactated Ringers 1,000 ML 100 ML IVCONT (07:48)
[2023-09-16 08:02] VITALS: BP 154/76
--- NOTE | 2023-09-16 09:09 | HO.ANESPROP2 ---
[facility] Past Medical History Medical History High cholesterol Mild acid reflux Ganglion cyst Functional capacity: independent ambulation Family History Family History Maternal Aunt History of breast cancer Mother Stroke Diabetes HTN (hypertension) Surgical History Surgical History H/O colonoscopy H/O hand surgery History of Problems with Anesthesia: No Social History Social History Alcohol intake: current Alcohol intake frequency: does not drink Alcohol type: beer Patient Tobacco Use Status: Never used Tobacco Are you DNR?: No Advance Directives: No Advance Directives Information Provided: Yes Recently lost weight without trying: No Nutrition Risks: No Nutritional Risk Patient : No service: No Current occupational status: employed Sexual orientation: Straight/Heterosexual Gender identity: Female Meds Allergies Allergy/AdvReac Type Severity Reaction Status Date / Time shellfish derived Allergy Unknown ANGIOEDEMA Verified 09/04/23 08:32 [SHELLFISH DERIVED] Sulfa (Sulfonamide Allergy Unknown Unknown Verified 09/04/23 08:32 Antibiotics) Active Medications: Current Medications Lactated Ringer's (Lr) 1,000 mls @ 100 mls/hr IVCONT .Q10H ERI Last Admin: 09/16/23 07:48 Dose: 100 mls/hr Sodium Biphosphate/Sodium Phosphate (Sodium Phosphate,Vilas-Dibasic 133 Ml Enema) 133 ml [place] ONCE PRN PRN Reason: Poor Colonoscopy Prep Results Home Medications Medication Instructions Recorded Confirmed Last Taken Type ascorbic acid (vitamin C) 500 mg 500 mg PO DAILY 10/12/21 10/12/21 Unknown History tablet cholecalciferol (vitamin D3) 125 125 mcg PO DAILY 10/12/21 10/12/21 Unknown History mcg (5,000 unit) tablet pantoprazole 40 mg tablet,delayed 40 mg PO DAILY 08/29/22 09/12/23 09/16/23 History release turmeric 100 mg-jt 150 cap PO 08/29/22 09/09/23 History mg-olive 50 mg-oreg 150 mg-capryl capsule amlodipine 5 mg tablet 2.5 mg PO DAILY 09/04/23 09/12/23 09/16/23 History rosuvastatin 10 mg tablet 10 mg PO DAILY 09/12/23 09/12/23 Unknown History Exam Height,Weight and Vital Signs: Height 5 ft 3.5 in Weight 72.6 kg Last Vital Signs Temp 97 F 09/16/23 07:41 Pulse 73 09/16/23 07:41 Resp 20 09/16/23 07:41 BP 154/76 H 09/16/23 08:02 Pulse Ox 99 09/16/23 07:41 O2 Del Method Room Air 09/16/23 07:41 Airway Mallampati Class: II TM Dist: >3cm Neck ROM: Full Heart: RRR Lungs: CTA Assessment and Plan Assessment Anesthesia Assessment: Anesthesia Plan Discussed Final Anesthetic Review History of Problems with Anesthesia: No NPO: Yes ASA Class: II Final Preanesthetic Review: Meds/Allgs Chart Reviewed, Consent Obtained/Reviewed and Anes Risks/Benef Reviewed Procedure Risk: Low Anesthetic Plan Anesthetic Plan: MAC: Disposition: Standard PACU
[2023-09-16 09:46] VITALS: BP 135/75; PULSE 75; RESP 16; TEMP 36.6; O2SAT 98
--- NOTE | 2023-09-16 09:47 | PM.OP ---
Brief Operative Note Date of Service: 09/16/23 Pre-op diagnosis: Screening Post-op diagnosis: other (Diverticulosis) Procedure: Colonoscopy to the cecum and TI Surgeon: Kalyan Segal MD Anesthesia: MAC Was an Commercial Marketing Specialist used for this Procedure?: No Estimated blood loss (mL): 0 Pathology: none sent Condition: stable Disposition: PACU
[2023-09-16 10:01] VITALS: BP 141/78; PULSE 67; RESP 18; TEMP 36.1; O2SAT 100
--- NOTE | 2023-09-16 10:12 | OP_ITS ---
DATE OF SERVICE: 09/16/2023 SURGEON: Kalyan Segal MD INDICATIONS: The patient presents for evaluation of colorectal cancer screening. Full consent was obtained from her for this, including risks of bleeding and perforation. PREOPERATIVE DIAGNOSIS: Colorectal cancer screening. POSTOPERATIVE DIAGNOSIS: PROCEDURE PERFORMED: ESTIMATED BLOOD LOSS: COMPLICATIONS: ANESTHESIA: Monitored anesthesia care. ASSISTANTS: SPECIMENS: POSTOPERATIVE DIAGNOSES: Colorectal cancer screening, diverticulosis, and internal hemorrhoids. PROCEDURES PERFORMED: Colonoscopy to the cecum and terminal ileum. DESCRIPTION OF PROCEDURE: The patient was placed in the left lateral decubitus position. The digital rectal exam revealed no abnormalities. The Olympus video pediatric colonoscope was then entered into the rectum and advanced easily to the cecum. Once in the cecum, I did identify normal-appearing cecal pouch with appendiceal orifice and a normal-appearing ileocecal valve. The terminal ileum was cannulated and appeared normal. The scope was withdrawn back in the colon. The entire cecum and ileocecal valve appeared normal. The scope was slowly withdrawn, assessing all mucosal surfaces carefully. Preparation was excellent. I did not visualize any sign of polyps, colitis, or angiodysplasia. There was a mild amount of sigmoid diverticulosis. In the rectum, scope was retroflexed, visualizing internal hemorrhoids, but no other pathology. The rectal mucosa appeared normal. The scope was straightened and withdrawn from the patient. She tolerated the procedure well and was returned to the recovery area in stable condition. IMPRESSION: 1. Diverticulosis. 2. Internal hemorrhoids. PLAN: Given today's negative exam and negative family history, I would recommend a followup coloscopy in 10 years for further screening. She will otherwise see me on a p.r.n. basis. MD MARIANELA Erazo/ANIYA / [phone]
--- NOTE | 2023-09-16 10:12 | HO.POSTANES ---
Post Anesthesia Evaluation Post Anesthesia Evaluation Date of Service: 09/16/23 Vital Signs: Vital Signs Temp Pulse Resp BP Pulse Ox O2 Del Method 09/16/23 10:01 97.0 F 67 18 141/78 H 100 Room Air 09/16/23 09:46 97.8 F 75 16 135/75 98 Room Air 09/16/23 08:02 154/76 H 09/16/23 07:41 97 F 73 20 182/88 H 99 Room Air Anesthesia: Monitored Mental Status: Awake Pain Control: Satisfactory Nausea/Vomiting: None Hydration: Adequate Anesthesia-Related Issues: No Anes. Related Issues
== END 2023-09-16 10:25 | disposition home or self-care (01) ==
PROVIDERS: PCP Internal Medicine; Visit Provider Internal Medicine
PROC: 0DJD8ZZ Inspection of Lower Intestinal Tract, Via Natural or Artificial Opening Endoscopic (ICD-10-PCS; CPT 45378; principal; 2023-09-16 08:40)
DX: Z12.11 Encounter for screening for malignant neoplasm of colon (principal); K57.30 Diverticulosis of large intestine without perforation or abscess without bleeding; K64.8 Other hemorrhoids; K21.9 Gastro-esophageal reflux disease without esophagitis; E78.5 Hyperlipidemia, unspecified; Z79.899 Other long term (current) drug therapy; Z87.891 Personal history of nicotine dependence
CPT/HCPCS: 45378; J2704

== ENCOUNTER 2023-11-13 12:56 | Outpatient (REF) | payer OTHER, SELFPAY ==
--- NOTE | ~2023-11-13 | XR_ITS ---
EXAMINATION: XR KNEE, RIGHT CLINICAL INFORMATION: Pain after falling COMPARISON: None available. TECHNIQUE: Four views of the right knee. FINDINGS: Small joint effusion. There is a transverse fracture through the inferior pole of the patella. Distal femur and proximal tibia intact. XR/XR knee RT 4V IMPRESSION: Patellar fracture.
== END 2023-11-13 12:57 | disposition home or self-care (01) ==
LOC: HO.HMGCX 12:56
PROVIDERS: PCP Internal Medicine; Visit Provider Internal Medicine
DX: M25.561 Pain in right knee (principal)
CPT/HCPCS: 73564

== ENCOUNTER 2023-11-25 08:57 | Outpatient (REF) | payer OTHER, SELFPAY ==
--- NOTE | ~2023-11-25 | XR_ITS ---
EXAMINATION: XR KNEE, RIGHT CLINICAL INFORMATION: Pain in unspecified knee. COMPARISON: November 13, 2023. TECHNIQUE: Two views of the right knee. FINDINGS: Mild narrowing of the medial compartment. Decreased small joint effusion. Redemonstration of transverse fracture through the inferior pole of the patella. Fracture line alignment is similar. XR/XR knee RT 2V IMPRESSION: Redemonstration of transverse fracture through the inferior pole of the patella. Fracture line alignment is similar.
== END 2023-11-25 08:58 | disposition home or self-care (01) ==
LOC: HO.HOSX 08:57
PROVIDERS: Visit Provider Physician Assistant
DX: S82.001A Unspecified fracture of right patella, initial encounter for closed fracture (principal)
CPT/HCPCS: 73560; 99202

== ENCOUNTER 2023-11-25 09:09 | Outpatient (AMB) | payer OTHER, SELFPAY ==
--- NOTE | 2023-11-25 09:16 | MHC.OFFVIS ---
Vital Signs 11/25/23 09:36 Height 5 ft 3.5 in Weight 160 lb BMI 27.9 Intake Visit Reasons: FC-Distal femur and proximal tibia intact, rt knee Intake Note: Martha a 63 year old female who presents today as a new patient for an evaluation of right patellar fracture, DOI 11/12/23. Patient reports that she has been dealing with a swollen achilles tendon that has been causing her to become off balance. States that she fell landing on her right knee. She presented to her PCP the following day where xrays were taken and referred to orthopedics. She purchased an OTC knee immobilizer. Currently her pain comes with the slightest flexion and is located in the anterior aspect. Denies numbness and tingling. Finds relief with Tylenol, however she has not needed for a few days. Allergies shellfish derived [SHELLFISH DERIVED] Allergy (Unknown, Verified 11/25/23 09:36) ANGIOEDEMA Sulfa (Sulfonamide Antibiotics) Allergy (Unknown, Verified 11/25/23 09:36) Unknown HPI HPI FC-Distal femur and proximal tibia intact, rt knee: Details: 63-year-old female who presents to the office today for evaluation of right knee injury after a fall on her right knee, 11/12/23. She reports she has a history of swollen Achilles tendon that has been causing her to go off balance. She was seen by her PCP the next day who ordered x-rays and referred her to our office. She currently states she has pain at the anterior aspect of her knee that comes with the slightest of flexion. She denies any numbness or tingling. She finds relief with Tylenol and icing. She purchased an OTC knee immobilizer. [facility] Medical History High cholesterol Mild acid reflux Ganglion cyst Surgical History H/O colonoscopy H/O hand surgery Family History Maternal Aunt History of breast cancer Mother Stroke Diabetes HTN (hypertension) Social History (Updated 11/25/23 @ 09:32 by GURDEEP Davis) Alcohol intake: current Alcohol intake frequency: does not drink Alcohol type: beer Patient Tobacco Use Status: Never used Tobacco service: No Current occupational status: retired Sexual orientation: Straight/Heterosexual Gender identity: Female Review of Systems Const All systems reviewed & are unremarkable except as noted in HPI and below Physical Exam Vital Signs: BMI result Body Mass Index 27.9 Const General: cooperative, healthy appearing, comfortable, no acute distress, well developed and alert Orientation/consciousness: patient oriented x3 HEENT Head: Yes normal to inspection, Yes normocephalic and Yes atraumatic Eyes General: appearance normal, both eyes and all related structures Resp Effort & Inspection: normal respiratory effort and able to speak in complete sentences Cardio Rate: regular rate Peripheral pulses: Peripheral pulses 2+ throughout GI Palpation (GI): Soft to palpation Skin Lesions: no lesions Rashes: no rashes Neuro General: patient oriented x3 Extrem Other: Right knee Normal to inspection. Elba tenderness to palpation no effusion rom 0-30 degrees Calf supple, nontender. NVI. Office Procedures Fracture Care Fracture Billing Code: Fracture Billing Code Results Reviewed Results Reviewed: Xrays were obtained in the office today and personally reviewed by me of the right knee show non displaced fracture through the inferior pole of the patella. Assessment & Plan Assessment & Plan (1) Right patella fracture: Code(s): S82.001A - Unspecified fracture of right patella, initial encounter for closed fracture Category: Medical Plan Images reviewed with Dr. Pratt in the office today. She was also given an ACL brace. She will begin a course of physical therapy to work on ROM 0-30 degrees and increase 15 degrees each week. She can also work on quad strengthening exercises and increase activity as tolerated. She can remove the brace for showering and resting and see me back in 4 weeks with new x-rays, sooner if needed. Orders: Orders XR knee RT 2V Today M25.569 - Pain in unspecified knee PT Evaluation and Treatment Today S82.001A - Unspecified fracture of right patella, initial encounter for closed fracture Patient Instructions: Scribed for Jessie Lerma PA-C, by Robb Ignacio medical collections representative, on 11/13/2023 at 9:30 AM EST. Jessie Lopez PA-C, have personally reviewed and agree with the information entered by the scribe. Coding Level of Care Code New Pt Level 3 (52229) Diagnoses Right patella fracture S82.001A CPT Codes Fracture Care - Fracture Billing Code: Fracture Billing Code ([id number])
[2023-11-25 09:36] VITALS: BMI 27.9
== END 2023-11-25 10:22 | disposition home or self-care (01) ==
PROVIDERS: PCP Internal Medicine; Visit Provider Physician Assistant
DX: S82.001A Unspecified fracture of right patella, initial encounter for closed fracture (principal)
CPT/HCPCS: 99203

== ENCOUNTER 2023-12-25 06:53 | Outpatient (REF) | payer OTHER, SELFPAY ==
--- NOTE | ~2023-12-25 | XR_ITS ---
EXAMINATION: XR KNEE, RIGHT CLINICAL INFORMATION: Pain in unspecified knee. COMPARISON: 11/25/2023, 11/13/2023. TECHNIQUE: AP and lateral views of the right knee. FINDINGS: Mild narrowing of the medial compartment with tiny medial marginal osteophytes. Redemonstration of transverse fracture through the inferior pole of the patella. Alignment maintained. Interval bridging callus formation. Fracture line is still faintly visible. Trace joint effusion. XR/XR knee RT 2V IMPRESSION: Healing transverse fracture through the inferior pole of the patella.
== END 2023-12-25 06:54 | disposition home or self-care (01) ==
LOC: HO.HOSX 06:53
PROVIDERS: Visit Provider Physician Assistant
DX: S82.091D Other fracture of right patella, subsequent encounter for closed fracture with routine healing (principal)
CPT/HCPCS: 73560; 99212

== ENCOUNTER 2023-12-25 09:06 | Outpatient (AMB) | payer OTHER, SELFPAY ==
--- NOTE | 2023-12-25 09:14 | A.OFFVIS_ITS ---
Vital Signs 12/25/23 09:28 Height 5 ft 3.5 in Weight 160 lb BMI 27.9 Intake Visit Reasons: OV-Distal femur and proximal tibia intact, rt knee Intake Note: Martha a 63 year old female who presents today for a follow up of right patellar fracture, DOI 11/12/23. Xrays updated. Patient reports she is doing well, however her main concern is her achilles that is causing pain and intermittent swelling. States pain and swelling increases with activity and is tender to the touch. Discomfort in achilles with knee brace so therefore she discontinued use. States tried massaging, icing, and medicated bandages with no relief at PT. Allergies shellfish derived [SHELLFISH DERIVED] Allergy (Unknown, Verified 12/25/23 09:32) ANGIOEDEMA Sulfa (Sulfonamide Antibiotics) Allergy (Unknown, Verified 12/25/23 09:32) Unknown Medication List - Last Reconciled 12/25/23 by Jessie Lerma PA-C amlodipine 2.5 mg PO DAILY ascorbic acid (vitamin C) 500 mg PO DAILY cholecalciferol (vitamin D3) 125 mcg PO DAILY pantoprazole 40 mg PO DAILY rosuvastatin 10 mg PO DAILY zqulpako-brjb-unzjv-oreg-capry 100 mg-150 mg- 50 mg-150 mg caps PO HPI HPI OV-Distal femur and proximal tibia intact, rt knee: Details: 63-year-old female who returns to the office today for a follow-up of right knee fracture 11/12/23. She states she has improvement in her knee however she continues to have intermittent swelling and pain in her Achilles tendon. Her pain is aggravated with activities and is tender to touch. She discontinued her knee brace as she experienced discomfort in her Achilles. She has tried massaging, icing, medicated bandages with no relief. She is working on physical therapy for her knee with benefits. She has no other concerns today. [facility] Medical History High cholesterol Mild acid reflux Ganglion cyst Surgical History H/O colonoscopy H/O hand surgery Family History Maternal Aunt History of breast cancer Mother Stroke Diabetes HTN (hypertension) Social History Alcohol intake: current Alcohol intake frequency: does not drink Alcohol type: beer Patient Tobacco Use Status: Never used Tobacco service: No Current occupational status: retired Sexual orientation: Straight/Heterosexual Gender identity: Female Review of Systems Const All systems reviewed & are unremarkable except as noted in HPI and below Physical Exam Vital Signs: BMI result Body Mass Index 27.9 Extrem Other: Right knee: Normal to inspection. No swelling no tenderness to palpation. She has full ROM. Calf supple, nontender. NVI. Results Reviewed Results Reviewed: X-rays of the right knee obtained in the office today show a well healed patellar fracture. Assessment & Plan Assessment & Plan (1) Right patella fracture: Code(s): S82.001A - Unspecified fracture of right patella, initial encounter for closed fracture Category: Medical Qualifiers: Encounter type: subsequent encounter Fracture type: closed Fracture morphology: other fracture Fracture healing: with routine healing Qualified Code(s): S82.091D - Other fracture of right patella, subsequent encounter for closed fracture with routine healing Plan She was transitioned to a Janumet brace which she will wear with activities. She will also work on physical therapy for motion and strengthening. She will increase activities as tolerated and see me back as needed. Orders: Orders 2 XR knee RT 2V Today M25.569 - Pain in unspecified knee Medications: New celecoxib (Celebrex) 200 mg PO BID 60 caps 3RF 30 days Patient Instructions: Scribed for Jessie Lerma PA-C, by Robb Ignacio medical coding specialist, on 12/25/2023 at 9:30 AM EST.? I, Jessie Lerma PA-C, have personally reviewed and agree with the information entered by the scribe. Coding Level of Care Code Global (40291) Diagnoses Other closed fracture of right patella with routine healing, subsequent encounter S82.091D Encounter type: subsequent encounter Fracture type: closed Fracture morphology: other fracture Fracture healing: with routine healing
[2023-12-25 09:28] VITALS: BMI 27.9
== END 2023-12-25 09:51 | disposition home or self-care (01) ==
PROVIDERS: PCP Internal Medicine; Visit Provider Physician Assistant
DX: S82.091D Other fracture of right patella, subsequent encounter for closed fracture with routine healing (principal)
CPT/HCPCS: 99214

== ENCOUNTER 2024-01-01 10:00 | Outpatient (RCR) | payer OTHER, SELFPAY ==
--- NOTE | 2024-01-27 09:23 | MHC.PT.DC ---
[facility] [place] Office [place] Office [place] Office [address] Omar Snow [address] [phone] F: [phone] F: [phone] F: [phone] F: [phone] Physical Therapy Discharge Report Diagnosis: This is a 63 yo female presenting to skilled PT with a script for unspecified fracture of R patella. Date of Surgery: 11/12/23 Date of Evaluation: 12/06/23 Date of Discharge: 01/27/24 Treatments to Date: 8 Cancellations to Date: 0 No Shows to Date: 0 Discharge Status: Achieved Goals Improved Function Independent with HEP Patient Elected to Stop Recommend MD Follow-up Discharge Summary: 12/31: Patient has come to 8 visits of PT for her knee and ankle. Her knee has restored function, improved pain, ROM and strength. However her Achilles tendon still bothers her. For this we have tried stretching, manual soft tissue, IASTM, KT, passive mobs and stretching, ionto, and US. She has made little gains with these treatments and will be seeking the help of a painter and body mechanic apprentice. DC to HEP at this point as she has plateaued in making progress for his body. I educated her on KT techniques at home and to continue HEP for stretching and gastroc strengthening. Electronically signed by: Yamileth Trejo PT Please sign and return to therapist. Thank you for your referral.
== END 2024-01-27 09:23 | disposition home or self-care (01) ==
LOC: HO.PTCHIC 10:00
PROVIDERS: PCP Internal Medicine; Visit Provider Physician Assistant
DX: S82.001D Unspecified fracture of right patella, subsequent encounter for closed fracture with routine healing (principal)
CPT/HCPCS: 97035; 97110; 97140; 97162

== ENCOUNTER 2024-04-20 08:21 | Outpatient (REF) | payer OTHER, SELFPAY ==
--- NOTE | ~2024-04-20 | MM_ITS ---
EXAMINATION: MM SCREENING DIGITAL BREAST TOMOSYNTHESIS, BILATERAL CLINICAL INFORMATION: Screening. Asymptomatic. COMPARISON: Mammography: Comparison is made with available priors TECHNIQUE: Digital breast mammography with tomosynthesis is performed in both the craniocaudal and mediolateral oblique views along with computer-aided detection (CAD). FINDINGS: The breasts are heterogeneously dense, which may obscure small masses (ACR BI-RADS breast composition Category c). There are no significant masses, abnormal calcifications, or other abnormalities. MM/MM tomosynthesis screening BI IMPRESSION: No mammographic evidence of malignancy. ASSESSMENT: BI-RADS BI-RADS 1 - Negative RECOMMENDATION: Routine annual mammography screening. 1 year F/U This examination should not preclude the clinical evaluation of a suspicious palpable abnormality. This patient's information was entered into a reminder system with a target due date for their next mammogram. Electronically signed by: Jessie Wilson DO 05/01/2024 09:31 AM EDKorey
== END 2024-04-20 08:22 | disposition home or self-care (01) ==
LOC: HO.MAMMO 08:21
PROVIDERS: PCP Internal Medicine; Visit Provider Internal Medicine
DX: Z12.31 Encounter for screening mammogram for malignant neoplasm of breast (principal)
CPT/HCPCS: 77063; 77067

== ENCOUNTER → 2024-04-20 08:45 | Outpatient (BNV) | payer OTHER, SELFPAY | PROVIDERS: PCP Internal Medicine; Visit Provider Internal Medicine | DX: Z12.31 Encounter for screening mammogram for malignant neoplasm of breast (principal) | CPT/HCPCS: 77063; 77067 ==

== ENCOUNTER 2024-09-08 08:43 | Outpatient (AMB) | payer OTHER, SELFPAY ==
--- NOTE | 2024-09-08 08:47 | A.OFFVIS_ITS ---
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 She is doing well with no automobile mechanic apprentice concerns. Currently not sexually active, w/health concerns. Attempting to eat a healthy diet with calcium and vitamin D and stays active with exercise-walking. Last pap smear; 2020. Last mammogram; 2023. Colonoscopy is UTD. Denies any family history of ovarian or colon cancer. FH breast cancer. [facility] Medical History High cholesterol Mild acid reflux Ganglion cyst Surgical History (Updated 09/08/24 @ 09:22 by Martha Rodriguez CNM) H/O colonoscopy H/O hand surgery Family History Maternal Aunt History of breast cancer Mother Stroke Diabetes HTN (hypertension) Social History Alcohol intake: current Alcohol intake frequency: does not drink Alcohol type: beer Patient Tobacco Use Status: Never used Tobacco service: No Current occupational status: retired Sexual orientation: Straight/Heterosexual Gender identity: Female Female Reproductive History Menstrual Total pregnancies: 2 Full term: 2 Number of Living Children: 2 Date of last pap smear: 04/26/21 (neg pap and hpv) Date of Mammogram: 04/20/24 (Birad 1) Review of Systems Const All systems reviewed & are unremarkable except as noted in HPI and below Reports as per HPI Eyes Reports no additional complaints ENT Reports no additional complaints Card Reports no additional complaints Resp Reports no additional complaints GI Reports as per HPI and Reports no additional complaints Reports as per HPI Musc Reports no additional complaints Skin/Breast Reports as per HPI Neuro Reports no additional complaints Psych Reports no additional complaints Endo Reports no additional complaints Surjit/Lymph Reports no additional complaints Aller/Immun Reports no additional complaints Physical Exam Vital Signs: Last Vital Signs BP 118/70 09/08/24 08:48 BMI result Body Mass Index 28.4 Const General: cooperative, healthy appearing, no acute distress, well developed and alert Orientation/consciousness: patient oriented x3 HEENT Head: Yes normal to inspection Eyes General: appearance normal, both eyes and all related structures Neck Neck: Yes normal visual inspection Thyroid: Thyroid normal Chest Chest palpation & inspection: normal inspection of the chest and other (no puckering, dimpling, peau de orange, retraction, discharge, masses) Breast/axilla inspection: normal inspection of the breasts Breast/axilla palpation: normal palpation of the breasts Resp Effort & Inspection: normal respiratory effort GI Inspection: Yes normal to inspection Palpation (GI): Soft to palpation Rectal Exam - Female: deferred General: Yes bladder normal to palpation External Female Exam: normal external appearance and normal appearance of the urethra Speculum Exam - Vagina: normal appearance of the vagina, normal palpation, normal vaginal discharge and vagina atrophic Speculum Exam - Cervix: normal appearance of the cervix and normal palpation Bimanual exam- vagina & uterus: normal bimanual exam, normal palpation, uterine size normal, bladder normal to palpation, normal palpation and non-tender Bimanual Exam- Adnexa, other: no masses Skin General skin exam: no rashes or lesions noted Rashes: no rashes Neuro General: patient oriented x3 Cognition (Neuro): normal cognition Extrem General: Yes normal to inspection Psych Attitude: cooperative Thought process: Normal thought process present Assessment & Plan Assessment & Plan (1) Encounter for well woman exam with routine gynecological exam: Code(s): Z01.419 - Encounter for gynecological examination (general) (routine) without abnormal findings Category: Medical Plan Discussed: Current recommendations for pap smears per ASCCP guidelines. Breast awareness, periodic self breast exams and yearly mammogram. Maintain a healthy lifestyle, well balanced diet including Calcium 1,200 mg and Vitamin D 600 IU daily, and routine exercise. Contact the office with any postmenopausal bleeding. Patient verbalizes understanding and agrees to the plan of care. She was given opportunity to ask questions and all questions were answered to the best of my ability. RTO in 1 year for annual automobile mechanic apprentice exam. This note is constructed using voice recognition software. While every effort has been made to ensure accuracy, supply person errors may have been included. Coding Level of Care Code Est Pt Prev Care 40-64y(24106) Diagnoses Encounter for well woman exam with routine gynecological exam Z01.419
[2024-09-08 08:48] VITALS: BP 118/70; BMI 28.4
--- OUTSIDE RECORDS SUMMARY | 2024-09-08 09:17 | XMS_ITS ---
Author Organization [facility] Address [address] [place] [address] Care Team Providers Care No Bake Molder Name Role Phone Kell RENDON, Mike Primary Care Provider Unavailab Kalyan Moreno Unavailable [phone] REASON FOR VISIT screening Encounters Encounter Location Date Provider Diagnosis [facility] Outpatient [address] [place], [place] [phone] 06/03/2023 Kalyan Segal PLAN OF TREATMENT No Information
--- OUTSIDE RECORDS SUMMARY | 2024-09-08 09:17 | XMS_ITS ---
Author Organization [facility] Address [address] [place] [address] Care Team Providers Care Machine Cloth Trimmer Name Role Phone Mike Castorena MD Primary Care Provider Unavailab Kalyan Moreno Unavailable [phone] REASON FOR VISIT screening PROBLEMS Problem Type ICD Code Onset Dates Problem Status W/U Status Risk SNOMED Code Notes Problem Diverticulosis of large intestine without perforation or abscess without bleeding (K57.30) Active confirmed Diverticul ar disease of colon (357031064) Encounters Encounter Location Date Provider Diagnosis [facility] Outpatient [address] [place], [place] [id number] 09/16/2023 Kalyan Segal Encounter for scre ening colonoscopy Z12.11 ; Diverticulosis of large intestine without perforation or abscess without bleeding K57.30 and Other hemorrhoids K64.8 ASSESSMENTS Encounter Date Diagnosis Assessment Notes Treatment Notes Treatment Clinical Notes 09/16/2023 Encounter for screening colonoscopy (ICD-10 - Z12.11) 09/16/2023 Diverticulosis of large intestine without perforation or abscess without bleeding (ICD-10 - K57.30) 09/16/2023 Other hemorrhoids (ICD-10 - K64.8) PLAN OF TREATMENT No Information
--- OUTSIDE RECORDS SUMMARY | 2024-09-08 09:18 | XMS_ITS | Patient Health Record ---
Author Organization [facility] Address [address] [place] [address] Care Team Providers Care Electric Blasting Cap Assembler Name Role Phone Mike Castorena MD Primary Care Provider UnavailKalyan Mejias [phone] ALLERGIES Allergen (clinical drug ingredient) Drug/Non Drug Allergy documented on EMR Reaction Allergy Type Onset Date Status Shellfish (FN) Shellfish-derived Products Unknown Drug Allergy Active REASON FOR REFERRAL No Information MEDICATIONS Medication SIG (Take, Route, Frequency, Duration) Notes Start Date End Date Status Pantoprazole Sodium 20 MG 1 tablet Orall y Once a day/ prn Active Crestor 20 MG 1/2 tablet Orally On ce a day Active amLODIPine Besylate 5 MG TAKE 1 TABLET B Y MOUTH EVERY DAY Oral for 30 Active SOCIAL HISTORY Sex Assigned At : Social History Observation Description Sex Assigned At Unknown PROBLEMS Problem Type ICD Code Onset Dates Problem Status W/U Status Risk SNOMED Code Notes Problem Colon cancer screening (Z12.11) Active confirmed 181948620 Problem Diverticulosis of large intestine without perforation or abscess without bleeding (K57.30) Active confirmed Diverticul ar disease of colon (423516731) Problem Preprocedural examination (Z01.818) Active confirmed [id number] Encounters Encounter Location Date Provider Diagnosis [facility] Outpatient [address] [place], [place] [phone] 09/16/2023 Kalyan Segal Encounter for scre ening [...] hemorrhoids (ICD-10 - K64.8) PLAN OF TREATMENT Future Test Test Name Order Date COLONOSCOPY 10/25/2011 COLONOSCOPY 03/19/2023 Insurance Providers Payer Name Payer Address Payer Phone Subscriber Number Group Number Insured Name Patient Relationship to Insured Coverage Start Date Coverage End Date [facility] [address] [place] [address] [id number] NICK SENA Self - patient is the insured MEDICAL (GENERAL) HISTORY Medical History History ICD Code Sinus problems Hypertension Colonoscopy 03/2012 with a hyperplastic p olyp--done by Dr. Simon Denies MS,DM,CVA,Lung disease,renal dise ase Hyperlipidemia Surgical History Surgery Date(Month/Year) Right hand surgery
--- OUTSIDE RECORDS SUMMARY | 2024-09-08 09:18 | XMS_ITS ---
Author Organization [facility] Address [address] [place] [address] Care Team Providers Care Mri Tech Name Role Phone Mike Castorena MD Primary Care Provider Unavailab Kalyan Moreno Unavailable [phone] REASON FOR VISIT r/s colonoscopy for saturday Encounters Encounter Location Date Provider Diagnosis [facility] [address] [place] [address] 05/29/2023 Kalyan Segal PLAN OF TREATMENT No Information
== END 2024-09-08 10:40 | disposition home or self-care (01) ==
PROVIDERS: PCP Internal Medicine; Visit Provider Advanced Practice Midwife
DX: Z01.419 Encounter for gynecological examination (general) (routine) without abnormal findings (principal)
CPT/HCPCS: 99396; 99459

== ENCOUNTER → 2024-09-08 08:43 | Outpatient (BNVA) | payer OTHER, SELFPAY | PROVIDERS: PCP Internal Medicine; Visit Provider Advanced Practice Midwife | DX: Z01.419 Encounter for gynecological examination (general) (routine) without abnormal findings (principal) | CPT/HCPCS: 99396; 99459 ==

== ENCOUNTER 2025-01-08 08:39 | Outpatient (AMB) | payer OTHER, SELFPAY ==
--- OUTSIDE RECORDS SUMMARY | 2025-01-08 08:50 | XMS_ITS | Patient Health Record ---
Author Organization [facility] Address [address] [place] [address] Care Team Providers Care Freelance Court Stenographer Name Role Phone Mike Castorena MD Primary Care Provider Kalyan Dunbar [phone] Allergies Allergen (clinical drug ingredient) Drug/Non Drug Allergy documented on EMR Reaction Allergy Type Onset Date Status Shellfish (FN) Shellfish-derived Products Unknown Drug Allergy Active Reason For Referral No Information Medications Medication SIG (Take, Route, Frequency, Duration) Notes Start Date End Date Status Pantoprazole Sodium 20 MG 1 tablet Orall y Once a day/ prn Active Crestor 20 MG 1/2 tablet Orally On ce a day Active amLODIPine Besylate 5 MG TAKE 1 TABLET B Y MOUTH EVERY DAY Oral for 30 Active Problems Problem Type SNOMED Code ICD Code Onset Dates Problem Status W/U Status Risk Notes Problem [id number] Colon cancer screening (Z12.11) Active confirmed Problem Diverticulosis o f large intestine without perforation or abscess without bleeding (K57.30) Active confirmed Problem [id number] Preprocedural examination (Z01.818) Active confirmed Plan Of Treatment Future Test Test Name Order Date COLONOSCOPY 10/25/2011 COLONOSCOPY 03/19/2023 Insurance Providers Payer Name Payer Address Payer Phone Subscriber Number Group Number Insured Name Patient Relationship to Insured Coverage Start Date Coverage End Date [employer] [facility] [employer] [address] [place] [phone] [id number] NICK SENA Self - patient is the insured Medical (General) History Medical History History ICD Code Sinus problems Hypertension Colonoscopy 03/2012 with a hyperplastic p olyp--done by Dr. Alfred Denies DC,DM,CVA,Lung disease,renal dise ase Hyperlipidemia Surgical History Surgery Date(Month/Year) Right hand surgery
--- NOTE | 2025-01-08 09:01 | MHC.PC.OV ---
Vital Signs 01/08/25 09:09 Height 5 ft 2.8 in Weight 163 lb 4 oz BMI 29.1 BP 154/86 H Blood Pressure Location Rt brachial Position Sitting Respiration 16 Pulse 63 Pulse Source Pulse Oximeter Temp 97 F Temp Source Temporal Artery Scan Pulse Oximetry (%) 98 Oxygen Delivery Method Room Air Intake Visit Reasons: establish care [facility] Network Administrator Required: No Accompanied by: Self / Same As Patient Allergies shellfish derived (SHELLFISH DERIVED) Allergy (Unknown, Verified 01/08/25 09:33) ANGIOEDEMA Sulfa (Sulfonamide Antibiotics) Allergy (Unknown, Verified 01/08/25 09:33) Unknown Medication List - Last Reconciled 01/08/25 by Candida Baxter PA-C amlodipine 2.5 mg PO DAILY ascorbic acid (vitamin C) 500 mg PO DAILY cholecalciferol (vitamin D3) 125 mcg PO DAILY pantoprazole 40 mg PO DAILY Tobacco use date assessed: 01/08/25 Fall risk assessment: No Falls in past year Last assessed Fall Risk: 01/08/25 Dental Screening Dental Screen Date: 01/08/25 Did you have a dental visit in the last 12 months?: Yes Did you have a dental problem in the last 6 months where you did not have access to dental care?: No Was dental information given to patient?: Patient has dentist HPI establish care HPI Details The patient is a 64-year-old female presenting for a wellness visit and management of chronic conditions. The patient has a history of essential hypertension, managed with amlodipine 2.5 mg daily. She initially took 5 mg but reduced the dose due to significant leg swelling, which resolved with the lower dose. She monitors her blood pressure at home, reporting occasional elevated readings, possibly due to dietary sodium intake. The patient reports gastroesophageal reflux disease, previously managed with pantoprazole 40 mg as needed. She experiences constipation with regular use and has identified dietary triggers such as garlic, turmeric, and jt. Currently, she manages symptoms by avoiding these triggers and using pantoprazole only when necessary. She has a history of a ganglion cyst on her right hand, which was previously drained but has not required further intervention. The patient reports arthritis, particularly affecting her knees and feet, leading to swelling and pain. She has been unable to see a mother repairer due to insurance limitations but plans to seek care after transitioning to Medicare. She also reports eczema, which occasionally flares up and is managed with topical treatments. She has tried [id number] hydrocortisone cream without significant relief and is considering a prescription-strength ointment. Preventative care includes a colonoscopy performed last year, a mammogram in April 2024, and a DEXA scan, all of which were normal. Social History - Family Status: The patient has a and has been involved in caregiving for family members. - Exercise: The patient engages in physical activities such as yard work. - Insurance: The patient plans to transition to Medicare and [facility] for better healthcare access. FORMERLY [facility], [facility] Medical History (Updated 01/08/25 @ 10:03 by Candida Baxter PA-C) Hypertension Preventative health care Eczema Arthritis Ganglion cyst of finger of right hand Establishing care with new doctor, encounter for History of mammogram (~04/2024) High cholesterol Mild acid reflux Ganglion cyst Surgical History H/O colonoscopy (~2023) H/O hand surgery Family History Maternal Aunt History of breast cancer Mother Stroke Diabetes HTN (hypertension) Social History Housing: House Alcohol intake: current Alcohol intake frequency: holidays/special occasions only Alcohol type: beer Patient Tobacco Use Status: Former Tobacco user service: No Current occupational status: retired Sexual orientation: Straight/Heterosexual Gender identity: Female Cognitive needs: No Hearing needs: No Vision needs: Yes (reading glasses) Questionnaire PHQ-9 Over the last 2 weeks, how often have you been bothered by any of the following problems? 1. Little interest or pleasure in doing things: not at all 2. Feeling down, depressed, or hopeless: not at all 3. Trouble falling or staying asleep, or sleeping too much: not at all 4. Feeling tired or having little energy: not at all 5. Poor appetite or overeating: not at all 6. Feeling bad about yourself - or that you are a failure or have let yourself or your family down: not at all 7. Trouble concentrating on things, such as reading the newspaper or watching television: not at all 8. Moving or speaking so slowly that other people could have noticed. Or the opposite - being so fidgety or restless that you have been moving around a lot more than usual: not at all 9. Thoughts that you would be better off or of hurting yourself in some way: not at all Total score: 0 Depression Screening Interpretation: Negative Depression Screening Done: Yes 64193 - PHQ-9 Billing: Yes Source: Developed by Drs. Kalyan Roberosn, Colleen Zuniga, Prashant Dumont and colleagues, with an educational estela from [employer]. Thrive Questionnaire Date Thrive assessed: 01/08/25 I am a: Patient What is your living situation today?: I have a steady place to live Within the past 12 months, did the food you bought not last and you didn't have the money to get more?: Never true Within the past 12 months, did you worry whether your food would run out before you got money to buy more?: Never true Do you have trouble paying for medicines?: No Do you have trouble getting transportation to medical appointments?: No Do you have trouble paying your heating and electricity bill?: No Do you have trouble taking care of your child, family member or friend?: No Do you have trouble with day-to-day activities such as bathing, preparing meals, shopping, managing finances, etc.?: No Are you currently unemployed and looking for a job?: No Are you interested in more education?: No Please select the resources that you would like help with: None Currently or been in a relationship where the following occur: No concerns reported THRIVE Score: 0 AUDIT C Alcohol Use Questionnaire (AUDIT-C) 1. How often do you have a drink containing alcohol?: Monthly or less 2. How many drinks containing alcohol do you have on a typical day when you are drinking?: 1 or 2 3. How often do you have six or more drinks on one occasion?: Never Total Score: 1 Score Reviewed/Action Taken: No LIZZ-7 AMB Questionnaire LIZZ-7 Date LIZZ - 7 assessed: 01/08/25 Feeling nervous, anxious, or on edge: 0 = Not at all Not being able to stop or control worryin = Not at all Worrying too much about different things: 0 = Not at all Trouble relaxin = Not at all Being so restless that it is hard to sit still: 0 = Not at all Becoming easily annoyed or irritable: 0 = Not at all Feeling afraid as if something awful might happen: 0 = Not at all Total LIZZ-7 score (0-4 normal; 5-9 mild; 10-14 moderate; 15-21 severe): 0 Source: Developed by Drs. Kalyan Roberson, Colleen Zuniga, Prashant Dumont and colleagues, with an educational estela from [employer]. LIZZ-7 Assessment Billing LIZZ-7 Assessment Tool: LIZZ-7 Assessment 96518 Review of Systems Const Details: - Cardiovascular: Denies chest pain, orthopnea, or syncope. - Respiratory: Denies dyspnea or cough. - Gastrointestinal: Reports occasional gastroesophageal reflux, denies abdominal pain. - Musculoskeletal: Reports arthritis-related pain and swelling in knees and feet. - Dermatological: Reports eczema with occasional flare-ups. Physical exam (Primary Care) Vital Signs: Last Vital Signs Temp 97 F 01/08/25 09:09 Pulse 63 01/08/25 09:09 Resp 16 01/08/25 09:09 BP 154/86 H 01/08/25 09:09 Pulse Ox 98 01/08/25 09:09 Oxygen Delivery Method Room Air 01/08/25 09:09 Care Plan Goal for BP management: <140/90 patient to continue amlodipine 2.5 mg daily although she will take her blood pressure over the next month and bring a blood pressure log at her next appointment BMI result Body Mass Index 29.1 BMI Assessment/Plan discussion: High BMI High, discussed plan: lifestyle, weight reduction, dietary, physical activity and alcohol moderation Tobacco/Smoking Status: Tobacco use Status Tobacco use date assessed 01/08/25 01/08/25 09:05 Patient Tobacco Use Status Former Tobacco user 01/08/25 09:21 PHQ-9: PHQ-9 Score PHQ-9: Total score 0 01/08/25 09:05 Depression Screening Interpretation: Negative Thrive Assessment: Date of Thrive Assessment Date Thrive assessed 01/08/25 01/08/25 09:05 Currently or been in a relationship where the following occur: No concerns reported Const Other: Appearance: Alert. Oriented X3. No acute distress. Head: Normal external exam. Normocephalic. Atraumatic. Eyes: Pupils are equal, round, and reactive to light. Extraocular movements intact. Conjunctiva and sclera normal. Eyelids normal. Ears: External auditory canal normal. Tympanic membranes normal. Throat: Pharynx normal. Uvula midline. Moist mucous membranes. Neck: Normal inspection. Neck supple. Full range of motion. No adenopathy. Thyroid Normal. No meningeal signs. No neck mass noted. Cardiovascular: Normal heart rate and rhythm. Heart sound normal. No murmurs noted. Pulses normal throughout. Respiratory: No respiratory distress. Painless inspiration. Breath sounds normal. No wheezes/rales/rhonchi noted. Chest nontender. No accessory muscle usage noted or decreased air movement noted. Abdomen: Soft and nontender. Bowel sounds normal in all 4 quadrants. No distention noted. No organomegaly noted. No visible injury noted. Back: No costovertebral angle tenderness. Full range of motion noted. Skin: Skin warm and dry. Normal skin color. Normal skin turgor. No rashes/lesions/lacerations noted. Eczema noted on the right hand, sometimes itchy. Extremities: No lower extremity edema. Extremities exhibit normal range of motion. Extremities nontender. History of ganglion cyst on the right hand. Neuro: Oriented X 3. No motor deficit. No sensory deficit. Reflexes normal. Results Reviewed Results Reviewed: - Labs: CBC, CMP, hemoglobin A1c, cholesterol panel, thyroid panel, vitamin B12, vitamin D, and inflammatory markers ordered. - Tests: Colonoscopy and mammogram results were normal. - Diagnostics: DEXA scan results were normal. Coding Level of Care Code New Pt Level 5 (01233) Complex EM visit Add On G2211 Diagnoses Establishing care with new doctor, encounter for Z76.89 Hypertension I10 Mild acid reflux K21.9 Ganglion cyst of finger of right hand M67.441 Arthritis M19.90 Eczema L30.9 Preventative health care Z00.00 Additional Codes PHQ-9 - 12600 - PHQ-9 Billing: Yes ([id number]) LIZZ-7 Assessment Billing - LIZZ-7 Assessment Tool: LIZZ-7 Assessment 09271 ([id number]) Assessment & Plan Assessment & Plan (1) Establishing care with new doctor, encounter for: Code(s): Z76.89 - Persons encountering health services in other specified circumstances Category: Medical (2) Hypertension: Code(s): I10 - Essential (primary) hypertension Category: Medical Plan: The patient will continue monitoring blood pressure at home and follow up in one month to assess control. If readings remain elevated, medication adjustment may be considered. Dietary modifications to reduce sodium intake were discussed. (3) Mild acid reflux: Code(s): K21.9 - Gastro-esophageal reflux disease without esophagitis Category: Medical Plan: The patient will continue using pantoprazole as needed and avoid known dietary triggers. A prescription for a stronger hydrocortisone ointment was provided for eczema management. Condition is chronic and stable will continue to monitor. (4) Ganglion cyst of finger of right hand: Code(s): M67.441 - Ganglion, right hand Category: Medical Plan: No immediate intervention is required for the ganglion cyst as it is not currently symptomatic. The patient will monitor for any changes. Condition is chronic and stable continue to monitor. (5) Arthritis: Code(s): M19.90 - Unspecified osteoarthritis, unspecified site Category: Medical Plan: The patient plans to seek podiatric care after transitioning to Medicare. In the meantime, she will continue using orthotics and monitor symptoms. Condition is chronic and stable will continue to monitor. (6) Eczema: Code(s): L30.9 - Dermatitis, unspecified Category: Medical Plan: A prescription for hydrocortisone ointment was provided to manage eczema flare-ups. The patient will apply as needed and monitor for improvement. (7) Preventative health care: Code(s): Z00.00 - Encounter for general adult medical examination without abnormal findings Category: Medical Plan: A prescription for hydrocortisone ointment was provided to manage eczema flare-ups. The patient will apply as needed and monitor for improvement. Plan Plan Patient was informed and verbally consented to the use of an ambient scribe for clinic note documentation during this visit. 1. Essential Hypertension The patient will continue monitoring blood pressure at home and follow up in one month to assess control. If readings remain elevated, medication adjustment may be considered. Dietary modifications to reduce sodium intake were discussed. 2. Gastroesophageal Reflux Disease The patient will continue using pantoprazole as needed and avoid known dietary triggers. A prescription for a stronger hydrocortisone ointment was provided for eczema management. 3. Ganglion Cyst No immediate intervention is required for the ganglion cyst as it is not currently symptomatic. The patient will monitor for any changes. 4. Arthritis The patient plans to seek podiatric care after transitioning to Medicare. In the meantime, she will continue using orthotics and monitor symptoms. 5. Eczema A prescription for hydrocortisone ointment was provided to manage eczema flare-ups. The patient will apply as needed and monitor for improvement. 6. Preventative Care The patient is up to date with her colonoscopy, mammogram, and DEXA scan. Routine blood work has been ordered to establish a baseline for future care. During the visit, we discussed the management of hypertension, including home monitoring and dietary modifications. The patient was advised to continue using pantoprazole as needed for reflux and to avoid dietary triggers. A prescription for hydrocortisone ointment was provided for eczema management. We also reviewed her preventative care, confirming that she is up to date with her screenings. Routine blood work was ordered to establish a baseline for future care. Follow-up was scheduled in one month to reassess blood pressure control and review lab results. Orders: Orders C Reactive Protein Today Z00.00 - Encounter for general adult medical examination without abnormal findings Hemoglobin A1c Today Z00.00 - Encounter for general adult medical examination without abnormal findings Liver Panel Today Z00.00 - Encounter for general adult medical examination without abnormal findings Magnesium Today Z00.00 - Encounter for general adult medical examination without abnormal findings TSH reflex Free T4 Today Z00.00 - Encounter for general adult medical examination without abnormal findings Complete Blood Count Auto Diff Today Z00.00 - Encounter for general adult medical examination without abnormal findings Comprehensive [place]. Panel Fast Today Z00.00 - Encounter for general adult medical examination without abnormal findings Lipid Panel Today Z00.00 - Encounter for general adult medical examination without abnormal findings Vitamin B12 and Folate Today Z00.00 - Encounter for general adult medical examination without abnormal findings Vitamin D 25-OH Total Today Z00.00 - Encounter for general adult medical examination without abnormal findings Medications: New hydrocortisone 2.5% 1 appl topical BID-TID PRN 28.35 grams 1RF itching Patient Instructions: - Monitor blood pressure at home and record readings. - Follow a low-sodium diet to help manage blood pressure. - Use pantoprazole as needed for reflux and avoid known dietary triggers. - Apply hydrocortisone ointment to eczema flare-ups as needed. - Schedule and complete routine blood work before the next appointment. - Follow up in one month for blood pressure assessment and lab review.
[2025-01-08 09:09] VITALS: BP 154/86; PULSE 63; RESP 16; TEMP 36.1; O2SAT 98; BMI 29.1
== END 2025-01-08 09:53 | disposition home or self-care (01) ==
LOC: HO.HMCH 08:39
PROVIDERS: PCP Internal Medicine; Visit Provider Physician Assistant Medical
DX: Z76.89 Persons encountering health services in other specified circumstances (principal); I10 Essential (primary) hypertension; K21.9 Gastro-esophageal reflux disease without esophagitis; M67.441 Ganglion, right hand; M19.90 Unspecified osteoarthritis, unspecified site; L30.9 Dermatitis, unspecified; Z00.00 Encounter for general adult medical examination without abnormal findings

== ENCOUNTER → 2025-01-08 08:39 | Outpatient (BNVA) | payer OTHER, SELFPAY | PROVIDERS: PCP Internal Medicine; Visit Provider Physician Assistant Medical | DX: Z00.00 Encounter for general adult medical examination without abnormal findings (principal); I10 Essential (primary) hypertension; K21.9 Gastro-esophageal reflux disease without esophagitis; M67.411 Ganglion, right shoulder; M19.90 Unspecified osteoarthritis, unspecified site; L30.9 Dermatitis, unspecified; Z76.89 Persons encountering health services in other specified circumstances; Z79.899 Other long term (current) drug therapy | CPT/HCPCS: 96127; 99202 ==

== ENCOUNTER 2025-01-25 08:23 | Outpatient (REF) | payer OTHER, SELFPAY ==
--- OUTSIDE RECORDS SUMMARY | 2025-01-25 08:28 | XMS_ITS | Patient Health Record ---
Author Organization [facility] Address [address] [place] [id number] Care Team Providers Care Pharmacovigilance Scientist Name Role Phone Mike Castorena MD Primary Care Provider Kalyan Dunbar [phone] Allergies Allergen (clinical drug ingredient) Drug/Non Drug [...] Problem Status W/U Status Risk Notes Problem [id number] Colon cancer screening (Z12.11) Active confirmed Problem Diverticulosis o f large intestine without perforation or abscess without bleeding (K57.30) Active confirmed Problem [id number] Preprocedural examination (Z01.818) Active confirmed Plan Of Treatment Future Test Test Name Order Date COLONOSCOPY 10/25/2011 COLONOSCOPY 03/19/2023 Insurance Providers Payer Name Payer Address Payer Phone Subscriber Number Group Number Insured Name Patient Relationship to Insured Coverage Start Date Coverage End Date [employer] [address] [place] [id number] NICK SENA Self - patient is the insured Medical (General) History Medical History History ICD Code Sinus problems Hypertension Colonoscopy 03/2012 with a hyperplastic p olyp--done by Dr. Alfred Denies [place],DM,CVA,Lung disease,renal dise ase Hyperlipidemia Surgical History Surgery Date(Month/Year) Right hand surgery
[2025-01-25 10:44] LABS: MANUAL DIFF FLAG NO
[2025-01-25 10:47] LABS: Hematocrit 36.0 % (37.0-47.0); Hemoglobin 12.0 g/dl (12.0-16.0); Imm Gran Abs Auto 0.00 X10*3/uL (0.00-0.03); Imm Gran Pct Auto 0.0 % (0.0-0.4); Lymphocytes Absolute Auto 1.8 X10*3/uL (1.2-4.9); Mean Corpuscular HGB Conc 33.3 g/dl (31.0-35.0); Mean Corpuscular Hemoglobin 30.8 pg (27.0-33.0); Mean Corpuscular Volume 92.5 fL (80.0-98.0); NRBC Abs Auto 0.000 X10*3/uL (0.0-0.012); NRBC Pct Auto 0.0 /100WBC (0.0-0.2); Platelet Count 219 X10*3/uL (160-400); Red Blood Count 3.89 X10*6/uL (4.20-5.50); White Blood Count 4.1 X10*3/uL (4.8-10.8)
[2025-01-25 11:00] LABS: Hemoglobin A1C 112.8996 umol/L; Total Hemoglobin (HGBA1C) 3173.0097 umol/L
[2025-01-25 11:23] LABS: Alanine Aminotransferase 14 U/L (0-31); Albumin Level 4.3 g/dL (3.5-5.0); Alkaline Phosphatase 84 U/L (39-117); Anion Gap 11 (12-20); Aspartate Amino Transferase 18 U/L (5-31); Blood Urea Nitrogen 11 mg/dL (9-16); Calcium 8.9 mg/dL (8.4-10.2); Carbon Dioxide 28 mmol/L (22-29); Chloride 105 mmol/L (96-108); Cholesterol 244 mg/dL (<200); Estimated Glomerular Filt Rate > 60; HDL Cholesterol 68 mg/dL (>40); Magnesium 2.2 mg/dL (1.6-2.6); Potassium 4.4 mmol/L (3.3-5.1); Sodium 140 mmol/L (135-145); Total Protein 6.9 g/dL (6.5-8.0); Triglycerides 67 mg/dL (<150)
[2025-01-25 11:31] LABS: Folate 11.7 ng/mL (> or = 4.0); Vitamin B12 240 pg/mL (200-900)
== END 2025-01-25 08:24 | disposition home or self-care (01) ==
LOC: HO.HMGCLDS 08:23
PROVIDERS: PCP Internal Medicine; Visit Provider Physician Assistant Medical
DX: Z00.00 Encounter for general adult medical examination without abnormal findings (principal)
CPT/HCPCS: 36415; 80053; 80061; 80076; 82248; 82306; 82607; 82746; 83036; 83735; 84443; 85025; 86140

== ENCOUNTER 2025-02-15 11:03 | Outpatient (AMB) | payer OTHER, SELFPAY ==
[2025-02-15 11:35] VITALS: BP 128/78; PULSE 72; RESP 14; TEMP 36.7; O2SAT 99; BMI 29.1
--- NOTE | 2025-02-15 11:35 | MHC.PC.OV ---
Vital Signs 02/15/25 11:35 Height 5 ft 2.8 in Weight 163 lb BMI 29.1 BP 128/78 Respiration 14 Pulse 72 Pulse Source Pulse Oximeter Temp 98.1 F Temp Source Temporal Artery Scan Pulse Oximetry (%) 99 Oxygen Delivery Method Room Air Intake Visit Reasons: Physical Human Resources Project Coordinator Required: No Accompanied by: Self / Same As Patient Allergies shellfish derived (SHELLFISH DERIVED) Allergy (Unknown, Verified 02/15/25 12:57) ANGIOEDEMA Sulfa (Sulfonamide Antibiotics) Allergy (Unknown, Verified 02/15/25 12:57) Unknown Medication List - Last Reconciled 02/15/25 by Candida Baxter PA-C ascorbic acid (vitamin C) 500 mg PO DAILY cholecalciferol (vitamin D3) 125 mcg PO DAILY docusate sodium (Colace) 100 mg PO BID hydrocortisone 2.5% 1 appl topical BID-TID PRN pantoprazole 40 mg PO DAILY polyethylene glycol 3350 (Miralax) 17 grams PO BID Tobacco use date assessed: 02/15/25 Dental Screening Dental Screen Date: 01/08/25 HPI Physical HPI Details The patient is a 64-year-old female presenting for a routine physical examination and management of chronic conditions. The patient has a history of hypertension, currently managed with amlodipine 2.5 mg, and reports consistent blood pressure readings in the 130s/80s range. She has experienced dry eyes, which may be related to her antihypertensive medication, and has been using lubricating eye drops for relief. The patient reports constipation, particularly after returning from vacation, and associates it with dietary changes and medication use, specifically pantoprazole. She plans to use Colace and MiraLAX to alleviate symptoms. The patient has a history of hyperlipidemia, which she associates with stress from caregiving responsibilities. She is not currently on cholesterol-lowering medication and plans to reassess her lipid levels in six months. The patient also reports earwax buildup, particularly in the right ear, and plans to manage it with peroxide at home. Social History - Family status: Lives with family, including children and grandchildren - Exercise: Engages in family activities and vacations, including hiking - Nutrition: Reports dietary changes during vacation [facility] Medical History (Updated 02/15/25 @ 13:05 by Candida Baxter PA-C) Impacted cerumen of right ear Dry eyes Hyperlipidemia LDL goal <100 Constipation Annual physical exam Hypertension Preventative health care Eczema Arthritis Ganglion cyst of finger of right hand Establishing care with new doctor, encounter for History of mammogram (~04/2024) High cholesterol Mild acid reflux Ganglion cyst Surgical History H/O colonoscopy (~2023) H/O hand surgery Family History Maternal Aunt History of breast cancer Mother Stroke Diabetes HTN (hypertension) Social History Housing: House Alcohol intake: current Alcohol intake frequency: holidays/special occasions only Alcohol type: beer Patient Tobacco Use Status: Former Tobacco user service: No Current occupational status: retired Sexual orientation: Straight/Heterosexual Gender identity: Female Cognitive needs: No Hearing needs: No Vision needs: Yes (reading glasses) Questionnaire PHQ-9 Over the last 2 weeks, how often have you been bothered by any of the following problems? 1. Little interest or pleasure in doing things: not at all 2. Feeling down, depressed, or hopeless: not at all 3. Trouble falling or staying asleep, or sleeping too much: not at all 4. Feeling tired or having little energy: not at all 5. Poor appetite or overeating: not at all 6. Feeling bad about yourself - or that you are a failure or have let yourself or your family down: not at all 7. Trouble concentrating on things, such as reading the newspaper or watching television: not at all 8. Moving or speaking so slowly that other people could have noticed. Or the opposite - being so fidgety or restless that you have been moving around a lot more than usual: not at all 9. Thoughts that you would be better off or of hurting yourself in some way: not at all Total score: 0 Depression Screening Interpretation: Negative Depression Screening Done: Yes 58373 - PHQ-9 Billing: Yes Source: Developed by Drs. Kalyan Roberson, Colleen Zuniga, Prashant Dumont and colleagues, with an educational estela from [employer]. Thrive Questionnaire Date Thrive assessed: 01/08/25 I am a: Patient What is your living situation today?: I have a steady place to live Within the past 12 months, did the food you bought not last and you didn't have the money to get more?: Never true Within the past 12 months, did you worry whether your food would run out before you got money to buy more?: Never true Do you have trouble paying for medicines?: No Do you have trouble getting transportation to medical appointments?: No Do you have trouble paying your heating and electricity bill?: No Do you have trouble taking care of your child, family member or friend?: No Do you have trouble with day-to-day activities such as bathing, preparing meals, shopping, managing finances, etc.?: No Are you currently unemployed and looking for a job?: No Are you interested in more education?: No Please select the resources that you would like help with: None Currently or been in a relationship where the following occur: No concerns reported THRIVE Score: 0 AUDIT C Alcohol Use Questionnaire (AUDIT-C) 1. How often do you have a drink containing alcohol?: Monthly or less 2. How many drinks containing alcohol do you have on a typical day when you are drinking?: 1 or 2 3. How often do you have six or more drinks on one occasion?: Never Total Score: 1 Score Reviewed/Action Taken: No LIZZ-7 AMB Questionnaire LIZZ-7 Date LIZZ - 7 assessed: 01/08/25 Feeling nervous, anxious, or on edge: 0 = Not at all Not being able to stop or control worryin = Not at all Worrying too much about different things: 0 = Not at all Trouble relaxin = Not at all Being so restless that it is hard to sit still: 0 = Not at all Becoming easily annoyed or irritable: 0 = Not at all Feeling afraid as if something awful might happen: 0 = Not at all Total LIZZ-7 score (0-4 normal; 5-9 mild; 10-14 moderate; 15-21 severe): 0 Source: Developed by Drs. Kalyan Roberson, Colleen Zuniga, Prashant Dumont and colleagues, with an educational estela from [employer] LIZZ-7 Assessment Billing LIZZ-7 Assessment Tool: LIZZ-7 Assessment 79468 Review of Systems Const Details: - Cardiovascular: Denies chest pain, palpitations, or syncope - Gastrointestinal: Reports constipation, denies abdominal pain - Ophthalmologic: Reports dry eyes, denies vision changes - ENT: Reports earwax buildup in the right ear, denies hearing loss All systems reviewed & are unremarkable except as noted in HPI and below Physical exam (Primary Care) Vital Signs: Last Vital Signs Temp 98.1 F 02/15/25 11:35 Pulse 72 02/15/25 11:35 Resp 14 02/15/25 11:35 BP 128/78 02/15/25 11:35 Pulse Ox 99 02/15/25 11:35 Oxygen Delivery Method Room Air 02/15/25 11:35 Care Plan Goal for BP management: <140/90 at Goal BMI result Body Mass Index 29.1 BMI Assessment/Plan discussion: High BMI High, discussed plan: lifestyle, weight reduction, dietary, physical activity and alcohol moderation Tobacco/Smoking Status: Tobacco use Status Tobacco use date assessed 02/15/25 02/15/25 11:44 Patient Tobacco Use Status Former Tobacco user 02/15/25 11:44 PHQ-9: PHQ-9 Score PHQ-9: Total score 0 02/15/25 11:44 Depression Screening Interpretation: Negative Thrive Assessment: Date of Thrive Assessment Date Thrive assessed 01/08/25 02/15/25 11:44 Currently or been in a relationship where the following occur: No concerns reported Const Other: Appearance: Alert. Oriented X3. No acute distress. Head: Normal external exam. Normocephalic. Atraumatic. Eyes: Pupils are equal, round, and reactive to light. Extraocular movements intact. Conjunctiva and sclera normal. Eyelids normal. Patient reports dryness and blurriness, possibly due to amlodipine. Ears: External auditory canal normal. Tympanic membranes normal. Partially impacted right external ear canal consistent with partially impacted cerumen.. Throat: Pharynx normal. Uvula midline. Moist mucous membranes. Neck: Normal inspection. Neck supple. Full range of motion. No adenopathy. Thyroid Normal. No meningeal signs. No neck mass noted. Cardiovascular: Normal heart rate and rhythm. Heart sound normal. No murmurs noted. Pulses normal throughout. Blood pressure is well-controlled on current medication. Respiratory: No respiratory distress. Painless inspiration. Breath sounds normal. No wheezes/rales/rhonchi noted. Chest nontender. No accessory muscle usage noted or decreased air movement noted. Abdomen: Soft and nontender. Bowel sounds normal in all 4 quadrants. No distention noted. No organomegaly noted.Patient reports constipation, advised to use Colace and MiraLAX. Back: No costovertebral angle tenderness. Full range of motion noted. Skin: Skin warm and dry. Normal skin color. Normal skin turgor. No rashes/lesions/lacerations noted. Extremities: No lower extremity edema. Extremities exhibit normal range of motion. Extremities nontender. Neuro: Oriented X 3. No motor deficit. No sensory deficit. Reflexes normal. Office Procedures Cerumen Removal From which ear canal was the cerumen removed: right Removal: irrigation Notes: patient tolerated procedure well, no complications and ear canal clear 49565-Buc Irrigation/Lavage Results Reviewed Results Reviewed: - Labs: White blood cell count chronically low, currently at 4000/mm? - Labs: A1c at 5.4%, indicating no diabetes - Labs: LDL cholesterol elevated Coding Level of Care Code Est Pt Level 4 (82330) Est Pt Prev Care 40-64y(29581) Diagnoses Annual physical exam Z00.00 Hypertension I10 Constipation K59.00 Hyperlipidemia LDL goal <100 E78.5 Dry eyes H04.123 Impacted cerumen of right ear H61.21 CPT Codes Office Procedure - CPT: 33910-Phu Irrigation/Lavage ([id number]) Additional Codes LIZZ-7 Assessment Billing - LIZZ-7 Assessment Tool: LIZZ-7 Assessment 52593 ([id number]) PHQ-9 - 09154 - PHQ-9 Billing: Yes ([id number]) Assessment & Plan Assessment & Plan (1) Annual physical exam: Code(s): Z00.00 - Encounter for general adult medical examination without abnormal findings Category: Medical (2) Hypertension: Code(s): I10 - Essential (primary) hypertension Category: Medical Plan: The patient will continue with amlodipine 2.5 mg for hypertension management, with a plan to monitor blood pressure at home. If blood pressure readings increase, alternative medications such as lisinopril or losartan may be considered. (3) Constipation: Code(s): K59.00 - Constipation, unspecified Category: Medical Plan: The patient will use Colace and MiraLAX to manage constipation, which is likely related to dietary changes and medication use. (4) Hyperlipidemia LDL goal <100: Code(s): E78.5 - Hyperlipidemia, unspecified Category: Medical Plan: The patient will focus on dietary modifications and reassess lipid levels in six months to determine the need for medication. (5) Dry eyes: Code(s): H04.123 - Dry eye syndrome of bilateral lacrimal glands Category: Medical Plan: The patient will continue using lubricating eye drops to manage dry eyes, potentially caused by amlodipine. (6) Impacted cerumen of right ear: Code(s): H61.21 - Impacted cerumen, right ear Category: Medical Plan: Patient now status post cerumen impaction to the right ear. Patient tolerated procedure well. No complications. Plan Plan Patient was informed and verbally consented to the use of an ambient scribe for clinic note documentation during this visit. 1. Hypertension The patient will continue with amlodipine 2.5 mg for hypertension management, with a plan to monitor blood pressure at home. If blood pressure readings increase, alternative medications such as lisinopril or losartan may be considered. 2. Constipation The patient will use Colace and MiraLAX to manage constipation, which is likely related to dietary changes and medication use. 3. Hyperlipidemia The patient will focus on dietary modifications and reassess lipid levels in six months to determine the need for medication. 4. Dry Eyes The patient will continue using lubricating eye drops to manage dry eyes, potentially caused by amlodipine. 5. Earwax Buildup Patient now status post cerumen impaction to the right ear. Patient tolerated procedure well. No complications. During the visit, we discussed the management of hypertension with amlodipine and the potential side effects, including dry eyes. We also reviewed the patient's constipation management plan using Colace and MiraLAX, and the importance of monitoring her blood pressure at home. The patient was advised to focus on dietary changes to manage hyperlipidemia and to reassess her lipid levels in six months. Medications: New docusate sodium (Colace) 100 mg PO BID 30 caps 0RF polyethylene glycol 3350 (Miralax) 17 grams PO BID 119 grams 0RF Patient Instructions: - Continue taking amlodipine 2.5 mg daily and monitor blood pressure at home. - Use Colace and MiraLAX as directed to manage constipation. - Follow a healthy diet to manage cholesterol levels and reassess in six months. - Use lubricating eye drops for dry eyes as needed.
--- OUTSIDE RECORDS SUMMARY | 2025-02-15 12:02 | XMS_ITS | Patient Health Record ---
Author Organization [facility] Address [address] [place] [id number] Care Team Providers Care Digital Content Marketing Manager Name Role Phone Kell (RETIRED) Mike RENDON Primary Care Provider Unavailable Kalyan Segal Unavailable [phone] Allergies Allergen (clinical drug ingredient) Drug/Non Drug [...] Problem Status W/U Status Risk Notes Problem [id number] Colon cancer screening (Z12.11) Active confirmed Problem Diverticular disease of colon (324333479) Diverticulosis of large intestine without perforation or abscess without bleeding (K57.30) Active confirmed Problem [id number] Preprocedural examination (Z01.818) Active confirmed Plan Of Treatment Future Test Test Name Order Date COLONOSCOPY 10/25/2011 COLONOSCOPY 03/19/2023 Insurance Providers Payer Name Payer Address Payer Phone Subscriber Number Group Number Insured Name Patient Relationship to Insured Coverage Start Date Coverage End Date [address] [address] [id number] NICK SENA Self - patient is the insured Medical (General) History Medical History History ICD Code Sinus problems Hypertension Colonoscopy 03/2012 with a hyperplastic p olyp--done by Dr. Simon Denies [place],DM,CVA,Lung disease,renal dise ase Hyperlipidemia Surgical History Surgery Date(Month/Year) Right hand surgery
== END 2025-02-15 12:16 | disposition home or self-care (01) ==
LOC: HO.HMCSH 11:03
PROVIDERS: PCP Internal Medicine; Visit Provider Physician Assistant Medical
DX: Z00.00 Encounter for general adult medical examination without abnormal findings (principal); I10 Essential (primary) hypertension; E78.5 Hyperlipidemia, unspecified; K59.00 Constipation, unspecified; H04.123 Dry eye syndrome of bilateral lacrimal glands; H61.21 Impacted cerumen, right ear

== ENCOUNTER → 2025-02-15 11:03 | Outpatient (BNVA) | payer OTHER, SELFPAY | PROVIDERS: PCP Internal Medicine; Visit Provider Physician Assistant Medical | DX: Z00.00 Encounter for general adult medical examination without abnormal findings (principal); H61.21 Impacted cerumen, right ear; I10 Essential (primary) hypertension; K59.00 Constipation, unspecified; E78.5 Hyperlipidemia, unspecified; H04.123 Dry eye syndrome of bilateral lacrimal glands | CPT/HCPCS: 69209; 96127; 99212; 99396 ==

== ENCOUNTER 2025-05-03 08:06 | Outpatient (REF) | payer MEDICARE, SELFPAY ==
--- NOTE | ~2025-05-03 | MM_ITS ---
EXAMINATION: MM SCREENING DIGITAL BREAST TOMOSYNTHESIS, BILATERAL CLINICAL INFORMATION: Screening. Asymptomatic. COMPARISON: Mammography: Comparison is made with available priors TECHNIQUE: Digital breast mammography with tomosynthesis is performed in both the craniocaudal and mediolateral oblique views along with computer-aided detection (CAD). FINDINGS: The breasts are heterogeneously dense, which may obscure small masses. There are no significant masses, abnormal calcifications, or other abnormalities. MM/MM tomosynthesis screening BI IMPRESSION: No mammographic evidence of malignancy. ASSESSMENT: BI-RADS Category 1: Negative RECOMMENDATION: Routine annual mammography screening. 1 year F/U This examination should not preclude the clinical evaluation of a suspicious palpable abnormality. This patient's information was entered into a reminder system with a target due date for their next mammogram. Electronically signed by: Jessie Wilson DO 05/04/2025 12:40 PM EDT
--- OUTSIDE RECORDS SUMMARY | 2025-05-03 08:12 | XMS_ITS | Patient Health Record ---
Author Organization [facility] Address [address] [place] [id number] Care Team Providers Care Motor Coach Supervisor Name Role Phone Kell (RETIRED) Mike RENDON Primary Care Provider Unavailable Kalyan Segal Unavailable [phone] Allergies Allergen (clinical drug ingredient) Drug/Non Drug [...] 1 TABLET B Y MOUTH EVERY DAY Oral; Duration: 30 Active Problems Problem Type SNOMED Code ICD Code Onset Dates Problem Status W/U Status Risk Notes Problem Colon cancer screening (986055891) Colon cancer screening (Z12.11) Active confirmed Problem Diverticular disease of colon (430475728) Diverticulosis of large intestine without perforation or abscess without bleeding (K57.30) Active confirmed Problem Preprocedural examination (377099387563322) Preprocedural examination (Z01.818) Active confirmed Plan Of Treatment Future Test Test Name Order Date COLONOSCOPY 10/25/2011 COLONOSCOPY 03/19/2023 Insurance Providers Payer Name Payer Address Payer Phone Subscriber Number Group Number Insured Name Patient Relationship to Insured Coverage Start Date Coverage End Date [facility] [address] [place] [address] [id number] NICK SENA Self - patient is the insured Medical (General) History Medical History History ICD Code Sinus problems Hypertension Colonoscopy 03/2012 with a hyperplastic p olyp--done by Dr. Simon Denies [place],DM,CVA,Lung disease,renal dise ase Hyperlipidemia Surgical History Surgery Date(Month/Year) Right hand surgery
== END 2025-05-03 08:07 | disposition home or self-care (01) ==
LOC: HO.MAMMO 08:06
PROVIDERS: PCP Physician Assistant Medical; Visit Provider Physician Assistant Medical
DX: Z12.31 Encounter for screening mammogram for malignant neoplasm of breast (principal)
CPT/HCPCS: 77063; 77067

== ENCOUNTER → 2025-05-03 08:30 | Outpatient (BNV) | payer MEDICARE, SELFPAY | PROVIDERS: PCP Physician Assistant Medical; Visit Provider Internal Medicine | DX: Z12.31 Encounter for screening mammogram for malignant neoplasm of breast (principal) | CPT/HCPCS: 77063; 77067 ==

== ENCOUNTER 2025-05-18 09:00 | Outpatient (AMB) | payer MEDICARE, SELFPAY ==
--- OUTSIDE RECORDS SUMMARY | 2025-05-18 09:43 | XMS_ITS | Patient Health Record ---
Author Organization [facility] Address [address] [place] [phone] Care Team Providers Care Desk Operator Name Role Phone Kell (RETIRED) Mike RENDON Primary Care Provider Unavailable Kalyan Segal Unavailable [phone] Allergies Allergen (clinical drug ingredient) Drug/Non Drug [...] Status Risk Notes Problem Colon cancer screening (784547207) Colon cancer screening (Z12.11) Active confirmed Problem Diverticular disease of colon (173246182) Diverticulosis of large intestine without perforation or abscess without bleeding (K57.30) Active confirmed Problem Preprocedural examination (102648927310707) Preprocedural examination (Z01.818) Active confirmed Plan Of Treatment Future Test Test Name Order Date COLONOSCOPY 10/25/2011 COLONOSCOPY 03/19/2023 Insurance Providers Payer Name Payer Address Payer Phone Subscriber Number Group Number Insured Name Patient Relationship to Insured Coverage Start Date Coverage End Date [facility] [address] [place] [address] [id number] NICK SENA Self - patient is the insured Medical (General) History Medical History History ICD Code Sinus problems Hypertension Colonoscopy 03/2012 with a hyperplastic p olyp--done by Dr. Simon Denies [place],DM,CVA,Lung disease,renal dise ase Hyperlipidemia Surgical History Surgery Date(Month/Year) Right hand surgery
--- NOTE | 2025-05-18 10:29 | A.PODSOV_ITS ---
Intake Visit Reasons: Achilles Tendinities Allergies shellfish derived (SHELLFISH DERIVED) Allergy (Unknown, Verified 02/15/25 12:57) ANGIOEDEMA Sulfa (Sulfonamide Antibiotics) Allergy (Unknown, Verified 02/15/25 12:57) Unknown HPI HPI Achilles Tendinities: Details: 65-year-old female with past medical history of acid reflux presents for bilateral Achilles tendinitis. She describes it as a soreness worse to her left ankle. Pain is worse after prolonged activity, and when going downstairs. Initially, her symptoms started with her right ankle proximally 1 and half year ago, which was treated at that time using a steroid Dosepak. She then suffered a fall and injured her right knee, and eventually started having left ankle pain as well. Since then, she has tried multiple aecc-zkk-dhabszk treatment options. She finds mild relief with Vix. She has been using an hkxb-yyc-lcglkye insert. She continues to walk proximally 1-1-1/2 mi per day, 6 days a week. [facility] Medical History (Updated 05/18/25 @ 10:35 by Tre Beatty DPM) Achilles tendinitis Impacted cerumen of right ear Dry eyes Hyperlipidemia LDL goal <100 Constipation Annual physical exam Hypertension Preventative health care Eczema Arthritis Ganglion cyst of finger of right hand Establishing care with new doctor, encounter for History of mammogram (~05/03/25) High cholesterol Mild acid reflux Ganglion cyst Surgical History H/O colonoscopy (~2023) H/O hand surgery Family History Maternal Aunt History of breast cancer Mother Stroke Diabetes HTN (hypertension) Social History Housing: House Alcohol intake: current Alcohol intake frequency: holidays/special occasions only Alcohol type: beer Patient Tobacco Use Status: Former Tobacco user service: No Current occupational status: retired Sexual orientation: Straight/Heterosexual Gender identity: Female Cognitive needs: No Hearing needs: No Vision needs: Yes (reading glasses) Review of Systems Const All systems reviewed & are unremarkable except as noted in HPI and below Physical Exam Extrem Other: *Bilateral Lower Extremity Focused Exam Vascular: DP/PT 2/4, CFT<3s to all digits, TG warm to cool, no pedal edema Derm: No open wounds or clinical signs of infection Neuro: Protective sensation grossly intact to bilateral lower extremities MSK: Moderate tenderness on palpation along the insertion of the Achilles tendon left ankle, worse to the lateral aspect of the posterior heel. Palpable protuberance to the Achilles insertion, left worse than right. Mild pain on palpation of the Achilles tendon insertion right ankle and on maximum dorsiflexion of the ankle. No dell or defect. Plantar flexion strength 5/5 bilaterally. No pain on palpation of the plantar medial calcaneal tubercle bilaterally. Mild high arch type. On weight-bearing, bilateral heels are neutral. Results Reviewed Nephrology Results: Hgb, (12.0-16.0) 12.0 g/dl 01/25/25 WBC, (4.8-10.8) 4.1 X10*3/uL L 01/25/25 Plt Count, (160-400) 219 X10*3/uL 01/25/25 Sodium, (135-145) 140 mmol/L 01/25/25 Potassium, (3.3-5.1) 4.4 mmol/L 01/25/25 Chloride, (96-108) 105 mmol/L 01/25/25 Carbon Dioxide, (22-29) 28 mmol/L 01/25/25 BUN, (9-16) 11 mg/dL 01/25/25 Creatinine, (0.5-1.4) 0.85 mg/dL 01/25/25 Calcium, (8.4-10.2) 8.9 mg/dL 01/25/25 Assessment & Plan Assessment & Plan (1) Achilles tendinitis: Code(s): M76.60 - Achilles tendinitis, unspecified leg Category: Medical Qualifiers: Laterality: bilateral Qualified Code(s): M76.61 - Achilles tendinitis, right leg; M76.62 - Achilles tendinitis, left leg Plan: * Discussed the etiology of bilateral Achilles tendonitis. * Referred to physical therapy * Instructed to perform range of motion and stretching exercises at home * Recommended heel lift to be used when going out for long walks * Referred for bilateral ankle x-rays * Follow up in 3 weeks Orders: Orders PT Evaluation and Treatment Today M76.60 - Achilles tendinitis, unspecified leg XR Ankle Aditya min 3V Today M76.60 - Achilles tendinitis, unspecified leg Medications: New diclofenac sodium 1% (Voltaren Arthritis Pain) apply to left ankle 2 grams topical QID 50 grams 3RF achilles tendinitis Coding Level of Care Code New Pt Level 4 (07571) Diagnoses Achilles tendinitis of both lower extremities M76.61; M76.62 Laterality: bilateral Time Spent (min) 40
== END 2025-05-18 09:45 | disposition home or self-care (01) ==
LOC: HO.HPODS 09:00
PROVIDERS: PCP Physician Assistant Medical; Visit Provider Student in an Organized Health Care Education/Training Program
DX: M76.61 Achilles tendinitis, right leg (principal); M76.62 Achilles tendinitis, left leg
CPT/HCPCS: 99204

== ENCOUNTER → 2025-05-18 09:00 | Outpatient (BNVA) | payer MEDICARE, SELFPAY | PROVIDERS: PCP Physician Assistant Medical; Visit Provider Student in an Organized Health Care Education/Training Program | DX: M76.61 Achilles tendinitis, right leg (principal); M76.62 Achilles tendinitis, left leg | CPT/HCPCS: 99202 ==

== ENCOUNTER 2025-05-19 08:35 | Outpatient (REF) | payer MEDICARE, SELFPAY ==
--- NOTE | ~2025-05-19 | XR_ITS ---
EXAMINATION: XR ANKLES, BILATERALLY. CLINICAL INFORMATION: M76.60 - Achilles tendinitis, unspecified leg COMPARISON: None available. TECHNIQUE: AP, lateral, and mortise views both ankles in the upright position. FINDINGS: No acute cortical disruption or malalignment. No lytic or blastic lesions. No gross joint effusion. No subcutaneous emphysema. No soft tissue contusions or edema pattern. No lytic or blastic lesions. No metallic or radiopaque foreign body. Lateral projections do not include the calcaneus or the plantar calcaneus. There is a questionable exostosis at the Achilles tendon insertion on the left ankle. XR/XR Ankle Aditya min 3V IMPRESSION: No acute fracture or dislocation. Probable enthesopathy, left Achilles tendon. Electronically signed by: Quinten Neely MD 05/19/2025 09:26 AM ANNA CHU
--- OUTSIDE RECORDS SUMMARY | 2025-05-19 08:55 | XMS_ITS | Patient Health Record ---
Author Organization [facility] Address [address] [place] [id number] Care Team Providers Care Power Tool Repairer Name Role Phone Kell (RETIRED) Mike RENDON Primary Care Provider Unavailable Kalyan Segal Unavailable [phone] Allergies Allergen (clinical drug ingredient) Drug/Non Drug [...] Status Risk Notes Problem Colon cancer screening (240893080) Colon cancer screening (Z12.11) Active confirmed Problem Diverticular disease of colon (065926832) Diverticulosis of large intestine without perforation or abscess without bleeding (K57.30) Active confirmed Problem Preprocedural examination (063661534040365) Preprocedural examination (Z01.818) Active confirmed Plan Of Treatment Future Test Test Name Order Date COLONOSCOPY 10/25/2011 COLONOSCOPY 03/19/2023 Insurance Providers Payer Name Payer Address Payer Phone Subscriber Number Group Number Insured Name Patient Relationship to Insured Coverage Start Date Coverage End Date [facility] [address] [place] [address] [id number] NICK SENA Self - patient is the insured Medical (General) History Medical History History ICD Code Sinus problems Hypertension Colonoscopy 03/2012 with a hyperplastic p olyp--done by Dr. Simon Denies [place],DM,CVA,Lung disease,renal dise ase Hyperlipidemia Surgical History Surgery Date(Month/Year) Right hand surgery
== END 2025-05-19 08:36 | disposition home or self-care (01) ==
LOC: HO.HMGCX 08:35
PROVIDERS: PCP Physician Assistant Medical; Visit Provider Student in an Organized Health Care Education/Training Program
DX: M76.62 Achilles tendinitis, left leg (principal)
CPT/HCPCS: 73610

== ENCOUNTER → 2025-05-19 08:48 | Outpatient (BNV) | payer MEDICARE, SELFPAY | PROVIDERS: PCP Physician Assistant Medical; Visit Provider Radiology Diagnostic Radiology | DX: M76.60 Achilles tendinitis, unspecified leg (principal) | CPT/HCPCS: 73610 ==

== ENCOUNTER 2025-06-07 08:48 | Outpatient (AMB) | payer MEDICARE, SELFPAY ==
[2025-06-07 08:57] VITALS: BMI 29.8
--- NOTE | 2025-06-07 08:57 | A.OFFVIS_ITS ---
Vital Signs 06/07/25 08:57 Height 5 ft 2 in Weight 163 lb BMI 29.8 Intake Visit Reasons: fu Achilles Tendinities Intake Note: Martha is a 65 year old female who presents today for a follow up appointment for her bilateral achilles tendonitis. At her last visit she was referred to physical therapy and recommended heel lifts to be use when she is most active. Patient reports she is doing slight better. She has gone to 2 physical therapy appointments and noticed a change in her pain. She still finds it difficult to go down stairs. IMPRESSION: No acute fracture or dislocation. Probable enthesopathy, left Achilles tendon. Allergies shellfish derived (SHELLFISH DERIVED) Allergy (Unknown, Verified 06/07/25 08:57) ANGIOEDEMA Sulfa (Sulfonamide Antibiotics) Allergy (Unknown, Verified 06/07/25 08:57) Unknown HPI HPI fu Achilles Tendinities: Details: 65-year-old female with past medical history of acid reflux presents for bilateral Achilles tendinitis. She describes it as a soreness worse to her left ankle. Pain is worse after prolonged activity, and when going downstairs. She started physical therapy, seeing mild improvement. She feels an occasional sharp/pins and needles sensation to her ankle when the swelling worsens. She is using the heel lift, which helps. Not taking any oral medications. History: Initially, her symptoms started with her right ankle proximally 1 and half year ago, which was treated at that time using a steroid Dosepak. She then suffered a fall and injured her right knee, and eventually started having left ankle pain as well. Since then, she has tried multiple mjht-nkz-dnmlbwo treatment options. She finds mild relief with Vix. She has been using an knfn-lgu-xtioniu insert. She continues to walk proximally 1-1-1/2 mi per day, 6 days a week. [facility] Medical History (Updated 05/18/25 @ 10:35 by Tre Beatty DPM) Achilles tendinitis Impacted cerumen of right ear Dry eyes Hyperlipidemia LDL goal <100 Constipation Annual physical exam Hypertension Preventative health care Eczema Arthritis Ganglion cyst of finger of right hand Establishing care with new doctor, encounter for History of mammogram (~05/03/25) High cholesterol Mild acid reflux Ganglion cyst Surgical History H/O colonoscopy (~2023) H/O hand surgery Family History Maternal Aunt History of breast cancer Mother Stroke Diabetes HTN (hypertension) Social History Housing: House Alcohol intake: current Alcohol intake frequency: holidays/special occasions only Alcohol type: beer Patient Tobacco Use Status: Former Tobacco user service: No Current occupational status: retired Sexual orientation: Straight/Heterosexual Gender identity: Female Cognitive needs: No Hearing needs: No Vision needs: Yes (reading glasses) Review of Systems Const All systems reviewed & are unremarkable except as noted in HPI and below Physical Exam Vital Signs: BMI result Body Mass Index 29.8 Extrem Other: *Bilateral Lower Extremity Focused Exam Vascular: DP/PT 2/4, CFT<3s to all digits, TG warm to cool, no pedal edema Derm: No open wounds or clinical signs of infection Neuro: Protective sensation grossly intact to bilateral lower extremities MSK: Moderate tenderness on palpation along the insertion of the Achilles tendon left ankle, worse to the medial aspect of the posterior heel. Palpable protuberance to the Achilles insertion, left worse than right. Mild pain on palpation of the Achilles tendon insertion right ankle and on maximum dorsiflexion of the ankle. No dell or defect. Plantar flexion strength 5/5 bilaterally. No pain on palpation of the plantar medial calcaneal tubercle bilaterally. Mild high arch type. On weight-bearing, bilateral heels are neutral. Results Reviewed Results Reviewed: X-ray Read: 05/19/2025 X-ray right ankle 3 views (AP, Mortise, Lateral) reviewed which shows large posterior calcaneal insertional spur. I personally reviewed the imaging and my findings are listed above. X-ray Read: 05/19/2025 X-ray left ankle 3 views (AP, Mortise, Lateral) reviewed which shows moderate superior posterior calcaneal exostosis. Insertional spur not visualized on imaging parameters. I personally reviewed the imaging and my findings are listed above. Assessment & Plan Assessment & Plan (1) Achilles tendinitis: Code(s): M76.60 - Achilles tendinitis, unspecified leg Category: Medical Qualifiers: Laterality: bilateral Qualified Code(s): M76.61 - Achilles tendinitis, right leg; M76.62 - Achilles tendinitis, left leg Plan: * Discussed the etiology of bilateral Achilles tendonitis. * Reviewed bilateral ankle x-rays * Continue physical therapy * Instructed to continue range of motion and stretching exercises at home * Continue heel lift to be used when going out for long walks * Discussed possible MRI left ankle next visit due to possible retrocalcaneal bursitis vs insertional achilles microtearing. * Discussed surgical treatment options including insertional spur resection +/- achilles tendon debridement. * Follow up in 3 weeks. Possible left ankle MRI Coding Level of Care Code Est Pt Level 3 (28363) Diagnoses Achilles tendinitis of both lower extremities M76.61; M76.62 Laterality: bilateral Time Spent (min) 25
--- OUTSIDE RECORDS SUMMARY | 2025-06-07 09:19 | XMS_ITS | Patient Health Record ---
Author Organization [facility] Address [address] [place] [id number] Care Team Providers Care Coin Box Collector Name Role Phone Kell (RETIRED) Mike RENDON Primary Care Provider Unavailable Kalyan Segal Unavailable [phone] Allergies Allergen (clinical drug ingredient) Drug/Non Drug Allergy documented on EMR Reaction Allergy Type Onset Date Status Shellfish (FN) Shellfish-derived Products Unknown Drug Allergy Active Reason For Referral No Information Medications Medication SIG (Take, Route, Frequency, Duration) Notes Start Date End Date Status Pantoprazole Sodium 20 MG Tablet Delayed Release 1 tablet Orally Once a day/ prn Active Crestor 20 MG Tablet 1/2 tablet Orally O nce a day Active amLODIPine Besylate 5 MG Tablet TAKE 1 TABLET BY MOUTH EVERY DAY Oral; Duration: 30 Active Social History Social History Additional Details Category Social Info Options Details Miscellaneous: Marital status: Occupation: retired Section Notes: Tobacco use negative; alcoho l use 2 drinks per day. Tobacco use negative; alcoho l use 2 drinks per day. Problems Problem Type SNOMED Code ICD Code Onset Dates Problem Status W/U Status Risk Notes Problem Colon cancer screening (867494921) Colon cancer screening (Z12.11) Active confirmed Problem Diverticular disease of colon (855642081) Diverticulosis of large intestine without perforation or abscess without bleeding (K57.30) Active confirmed Problem Preprocedural examination (997141535337013) Preprocedural examination (Z01.818) Active confirmed Plan Of Treatment Future Test Test Name Order Date COLONOSCOPY 10/25/2011 COLONOSCOPY 03/19/2023 Insurance Providers Payer Name Payer Address Payer Phone Subscriber Number Group Number Insured Name Patient Relationship to Insured Coverage Start Date Coverage End Date [facility] [address] [place] [address] [id number] NICK SENA Self - patient is the insured Medical (General) History Medical History History ICD Code Sinus problems Hypertension Colonoscopy 03/2012 with a hyperplastic p olyp--done by Dr. Simon Denies [place],DM,CVA,Lung disease,renal dise ase Hyperlipidemia Surgical History Surgery Date(Month/Year) Right hand surgery
== END 2025-06-07 09:37 | disposition home or self-care (01) ==
LOC: HO.HPODS 08:48
PROVIDERS: PCP Physician Assistant Medical; Visit Provider Student in an Organized Health Care Education/Training Program
DX: M76.61 Achilles tendinitis, right leg (principal); M76.62 Achilles tendinitis, left leg
CPT/HCPCS: 99213

== ENCOUNTER → 2025-06-07 08:48 | Outpatient (BNVA) | payer MEDICARE, SELFPAY | PROVIDERS: PCP Physician Assistant Medical; Visit Provider Student in an Organized Health Care Education/Training Program | DX: M76.61 Achilles tendinitis, right leg (principal); M76.62 Achilles tendinitis, left leg | CPT/HCPCS: 99212 ==

== ENCOUNTER 2025-06-30 09:06 | Outpatient (AMB) | payer MEDICARE, SELFPAY ==
--- NOTE | 2025-06-30 09:22 | A.OFFVIS_ITS ---
Intake Visit Reasons: fu achilles tendinitis Intake Note: Martha is a 65 year old female who presents to the office today for a follow up Achilles tendinitis. Pt was instructed to continue range of motion and stretching exercises at home. Pt states she is doing very well with physical therapy and she has been doing her exerices at home. She has notices improvements. Allergies shellfish derived (SHELLFISH DERIVED) Allergy (Unknown, Verified 06/30/25 09:23) ANGIOEDEMA Sulfa (Sulfonamide Antibiotics) Allergy (Unknown, Verified 06/30/25 09:23) Unknown HPI HPI fu achilles tendinitis: Details: 65-year-old female with past medical history of acid reflux returns for bilateral Achilles tendinitis. She has been attending physical therapy, which she finds helpful, and has about five sessions remaining. Her therapist performs taping, which the patient also reports helps. She reports hearing cracking sounds during movement, which she believes is calcification breaking up. Her symptoms have improved to the point where she can get up and walk without being restricted most days, and she notes the swelling has decreased as well. She has not needed to take dpjf-ftp-crjsbdw pain medication, other than the occasional Tylenol. She performs at home exercises and is compliant with her PT regimen. She plans to return to her gym later this month or next month. History: Initially, her symptoms started with her right ankle proximally 1 and half year ago, which was treated at that time using a steroid Dosepak. She then suffered a fall and injured her right knee, and eventually started having left ankle pain as well. Since then, she has tried multiple oyqz-fdx-ehuklmq treatment options. She finds mild relief with Vix. She has been using an qtnf-ort-phleumq insert. She continues to walk proximally 1-1-1/2 mi per day, 6 days a week. [facility] Medical History (Updated 05/18/25 @ 10:35 by Tre Beatty DPM) Achilles tendinitis Impacted cerumen of right ear Dry eyes Hyperlipidemia LDL goal <100 Constipation Annual physical exam Hypertension Preventative health care Eczema Arthritis Ganglion cyst of finger of right hand Establishing care with new doctor, encounter for History of mammogram (~05/03/25) High cholesterol Mild acid reflux Ganglion cyst Surgical History H/O colonoscopy (~2023) H/O hand surgery Family History Maternal Aunt History of breast cancer Mother Stroke Diabetes HTN (hypertension) Social History Housing: House Alcohol intake: current Alcohol intake frequency: holidays/special occasions only Alcohol type: beer Patient Tobacco Use Status: Former Tobacco user service: No Current occupational status: retired Sexual orientation: Straight/Heterosexual Gender identity: Female Cognitive needs: No Hearing needs: No Vision needs: Yes (reading glasses) Review of Systems Const All systems reviewed & are unremarkable except as noted in HPI and below Physical Exam Extrem Other: *Bilateral Lower Extremity Focused Exam Vascular: DP/PT 2/4, CFT<3s to all digits, TG warm to cool, no pedal edema Derm: No open wounds or clinical signs of infection Neuro: Protective sensation grossly intact to bilateral lower extremities MSK: Very mild tenderness on palpation along the insertion of the Achilles tendon left ankle, worse to the medial aspect of the posterior heel. Palpable protuberance to the Achilles insertion, left worse than right. No pain on palpation of the Achilles tendon insertion right ankle and on maximum dorsiflexion of the ankle. No dell or defect. Plantar flexion strength 5/5 bilaterally. No pain on palpation of the plantar medial calcaneal tubercle bilaterally. Mild high arch type. On weight-bearing, bilateral heels are neutral. Assessment & Plan Assessment & Plan (1) Achilles tendinitis: Code(s): M76.60 - Achilles tendinitis, unspecified leg Category: Medical Qualifiers: Laterality: bilateral Qualified Code(s): M76.61 - Achilles tendinitis, right leg; M76.62 - Achilles tendinitis, left leg Plan: * The patient is responding well to physical therapy. * She will continue and complete her current course of physical therapy, which includes five more sessions. * Recommended to gradually return to the gym, starting slowly and avoiding inclines. * If symptoms do not resolve or worsen after she completes PT, an MRI will be considered to evaluate the extent of tendon thickening and tearing. * Referral for more PT may be considered in the future if needed. * Minimally invasive surgery remains a future option if conservative measures fail. This would entail debridement of her tendons and her insertional achilles bone spurs. * Follow-up scheduled for the beginning of August, approximately 6 weeks from now, to assess her condition after completing PT. Coding Level of Care Code Est Pt Level 3 (83480) Diagnoses Achilles tendinitis of both lower extremities M76.61; M76.62 Laterality: bilateral Time Spent (min) 25
--- OUTSIDE RECORDS SUMMARY | 2025-06-30 09:58 | XMS_ITS | Patient Health Record ---
Author Organization [facility] Address [address] [place] [phone] Care Team Providers Care Coder Name Role Phone Kell (RETIRED) Mike RENDON Primary Care Provider Unavailable Kalyan Segal Unavailable [phone] Allergies Allergen (clinical drug ingredient) Drug/Non Drug [...] Status Risk Notes Problem Colon cancer screening (318945004) Colon cancer screening (Z12.11) Active confirmed Problem Diverticular disease of colon (283845289) Diverticulosis of large intestine without perforation or abscess without bleeding (K57.30) Active confirmed Problem Preprocedural examination (216973648297156) Preprocedural examination (Z01.818) Active confirmed Plan Of Treatment Future Test Test Name Order Date COLONOSCOPY 10/25/2011 COLONOSCOPY 03/19/2023 Insurance Providers Payer Name Payer Address Payer Phone Subscriber Number Group Number Insured Name Patient Relationship to Insured Coverage Start Date Coverage End Date [facility] [address] [place] [address] [id number] NICK SENA Self - patient is the insured Medical (General) History Medical History History ICD Code Sinus problems Hypertension Colonoscopy 03/2012 with a hyperplastic p olyp--done by Dr. Simon Denies [place],DM,CVA,Lung disease,renal dise ase Hyperlipidemia Surgical History Surgery Date(Month/Year) Right hand surgery
== END 2025-06-30 09:42 | disposition home or self-care (01) ==
LOC: HO.HPODS 09:07
PROVIDERS: PCP Physician Assistant Medical; Visit Provider Student in an Organized Health Care Education/Training Program
DX: M76.61 Achilles tendinitis, right leg (principal); M76.62 Achilles tendinitis, left leg
CPT/HCPCS: 99213

== ENCOUNTER → 2025-06-30 09:06 | Outpatient (BNVA) | payer MEDICARE, SELFPAY | PROVIDERS: PCP Physician Assistant Medical; Visit Provider Student in an Organized Health Care Education/Training Program | DX: M76.61 Achilles tendinitis, right leg (principal); M76.62 Achilles tendinitis, left leg | CPT/HCPCS: 99212 ==